=== PATIENT | male | born 1945 | race Caucasian/White ===

== ENCOUNTER 2017-10-22 08:00 | Day surgery (SDC) | payer MEDICARE, OTHER ==
[~2017-10-22 08:00] MED LIST: ALLO300 PO; ASCO500 PO; ASPI81EC PO; BUME2 PO; Bactrim Ds Tab1 EACH PO; CALC667 PO; CEPH500 PO; CLAR500; CLOP75; CLOP75 PO; CYAN500 PO; DIGO.125 PO; DIGO.25; ERYT333ERA PO; FURO40; GLIM2 PO; GLIM4 PO; LEVSOD125 PO; LEVSOD175; LEVSOD200; LEVSOD200 PO; LEVSOD25 PO; MAGNESIUM; MAGOXI400 PO; METF500 PO; METF500C PO; METO2.5 PO; OMEP20ER PO; POTA10T PO; POTCHL10ER; POTCHL10ER PO; TAMS.4ER PO; THYROXINE; WARF5; ZINC; [UNRECOGNIZED DRUG - OTHER]; [UNRECOGNIZED DRUG - REMARK]
== END 2017-10-22 10:51 | disposition home or self-care (01) ==
LOC: WOUND 08:00
PROC: 2W1RX6Z Compression of Left Lower Leg using Pressure Dressing (ICD-10-PCS; principal; 2017-10-22)
DX: Z48.00 Encounter for change or removal of nonsurgical wound dressing (principal); E11.622 Type 2 diabetes mellitus with other skin ulcer; L89.893 Pressure ulcer of other site, stage 3; I89.0 Lymphedema, not elsewhere classified; L89.152 Pressure ulcer of sacral region, stage 2

== ENCOUNTER 2017-10-26 12:38 | Day surgery (SDC) | payer MEDICARE, OTHER | END 2017-10-26 23:17 | disposition home or self-care (01) | LOC: WOUND 12:38 | PROC: 2W1RX6Z Compression of Left Lower Leg using Pressure Dressing (ICD-10-PCS; principal; 2017-10-26) | DX: Z48.00 Encounter for change or removal of nonsurgical wound dressing (principal); E11.622 Type 2 diabetes mellitus with other skin ulcer; L89.893 Pressure ulcer of other site, stage 3; I89.0 Lymphedema, not elsewhere classified; L89.152 Pressure ulcer of sacral region, stage 2 ==

== ENCOUNTER 2017-10-28 14:11 | Day surgery (SDC) | payer MEDICARE, OTHER | END 2017-10-28 23:12 | disposition home or self-care (01) | LOC: WOUND 14:11 | PROC: 2W1RX6Z Compression of Left Lower Leg using Pressure Dressing (ICD-10-PCS; principal; 2017-10-28) | DX: Z48.00 Encounter for change or removal of nonsurgical wound dressing (principal); E11.622 Type 2 diabetes mellitus with other skin ulcer; L89.893 Pressure ulcer of other site, stage 3; I89.0 Lymphedema, not elsewhere classified; L89.152 Pressure ulcer of sacral region, stage 2 ==

== ENCOUNTER 2017-11-04 12:30 | Day surgery (SDC) | payer MEDICARE, OTHER | END 2017-11-04 16:53 | disposition home or self-care (01) | LOC: WOUND 12:30 | DX: Z48.00 Encounter for change or removal of nonsurgical wound dressing (principal); E11.622 Type 2 diabetes mellitus with other skin ulcer; L89.893 Pressure ulcer of other site, stage 3; I89.0 Lymphedema, not elsewhere classified; L89.152 Pressure ulcer of sacral region, stage 2; E66.9 Obesity, unspecified; L97.929 Non-pressure chronic ulcer of unspecified part of left lower leg with unspecified severity; L97.919 Non-pressure chronic ulcer of unspecified part of right lower leg with unspecified severity | CPT/HCPCS: G0463 ==

== ENCOUNTER 2017-11-11 08:00 | Day surgery (SDC) | payer MEDICARE, OTHER | END 2017-11-11 11:00 | disposition home or self-care (01) | LOC: WOUND 08:00 | PROC: 2W1RX6Z Compression of Left Lower Leg using Pressure Dressing (ICD-10-PCS; principal; 2017-11-11) | DX: Z48.00 Encounter for change or removal of nonsurgical wound dressing (principal); E11.622 Type 2 diabetes mellitus with other skin ulcer; L89.893 Pressure ulcer of other site, stage 3; I89.0 Lymphedema, not elsewhere classified; L89.152 Pressure ulcer of sacral region, stage 2 | CPT/HCPCS: G0463 ==

== ENCOUNTER 2017-11-18 08:00 | Day surgery (SDC) | payer MEDICARE, OTHER | END 2017-11-18 11:41 | disposition home or self-care (01) | LOC: WOUND 08:00 | PROC: 2W1RX6Z Compression of Left Lower Leg using Pressure Dressing (ICD-10-PCS; principal; 2017-11-18) | DX: Z48.00 Encounter for change or removal of nonsurgical wound dressing (principal); E11.622 Type 2 diabetes mellitus with other skin ulcer; L89.893 Pressure ulcer of other site, stage 3; I89.0 Lymphedema, not elsewhere classified; L89.152 Pressure ulcer of sacral region, stage 2; L97.829 Non-pressure chronic ulcer of other part of left lower leg with unspecified severity; L97.819 Non-pressure chronic ulcer of other part of right lower leg with unspecified severity | CPT/HCPCS: G0463 ==

== ENCOUNTER 2017-11-22 09:18 | Day surgery (SDC) | payer MEDICARE, OTHER | END 2017-11-22 13:19 | disposition home or self-care (01) | LOC: WOUND 09:18 | PROC: 2W1RX6Z Compression of Left Lower Leg using Pressure Dressing (ICD-10-PCS; principal; 2017-11-22) | DX: Z48.00 Encounter for change or removal of nonsurgical wound dressing (principal); E11.622 Type 2 diabetes mellitus with other skin ulcer; L89.893 Pressure ulcer of other site, stage 3; I89.0 Lymphedema, not elsewhere classified; L89.152 Pressure ulcer of sacral region, stage 2; L97.829 Non-pressure chronic ulcer of other part of left lower leg with unspecified severity; L97.819 Non-pressure chronic ulcer of other part of right lower leg with unspecified severity ==

== ENCOUNTER 2017-11-26 00:40 | Day surgery (SDC) | payer MEDICARE, OTHER | END 2017-11-26 23:20 | disposition home or self-care (01) | LOC: WOUND 00:40 | PROC: 2W1RX6Z Compression of Left Lower Leg using Pressure Dressing (ICD-10-PCS; principal; 2017-11-26) | DX: Z48.00 Encounter for change or removal of nonsurgical wound dressing (principal); E11.622 Type 2 diabetes mellitus with other skin ulcer; L89.893 Pressure ulcer of other site, stage 3; I89.0 Lymphedema, not elsewhere classified; L89.152 Pressure ulcer of sacral region, stage 2; E66.01 Morbid (severe) obesity due to excess calories | CPT/HCPCS: G0463 ==

== ENCOUNTER 2017-12-02 08:00 | Day surgery (SDC) | payer MEDICARE, OTHER | END 2017-12-02 14:18 | disposition home or self-care (01) | LOC: WOUND 08:00 | PROC: 2W1RX6Z Compression of Left Lower Leg using Pressure Dressing (ICD-10-PCS; principal; 2017-12-02) | DX: Z48.00 Encounter for change or removal of nonsurgical wound dressing (principal); E11.622 Type 2 diabetes mellitus with other skin ulcer; L89.893 Pressure ulcer of other site, stage 3; L89.152 Pressure ulcer of sacral region, stage 2; I89.0 Lymphedema, not elsewhere classified; E66.01 Morbid (severe) obesity due to excess calories; L97.829 Non-pressure chronic ulcer of other part of left lower leg with unspecified severity; L97.819 Non-pressure chronic ulcer of other part of right lower leg with unspecified severity ==

== ENCOUNTER 2017-12-08 13:00 | Day surgery (SDC) | payer MEDICARE, OTHER | END 2017-12-08 13:40 | disposition home or self-care (01) | LOC: WOUND 13:00 | PROC: 2W1RX6Z Compression of Left Lower Leg using Pressure Dressing (ICD-10-PCS; principal; 2017-12-08) | DX: Z48.00 Encounter for change or removal of nonsurgical wound dressing (principal); E11.622 Type 2 diabetes mellitus with other skin ulcer; L89.893 Pressure ulcer of other site, stage 3; I89.0 Lymphedema, not elsewhere classified; L89.152 Pressure ulcer of sacral region, stage 2 ==

== ENCOUNTER 2017-12-16 00:21 | Day surgery (SDC) | payer MEDICARE, OTHER | END 2017-12-16 23:13 | disposition home or self-care (01) | LOC: WOUND 00:21 | PROC: 2W1RX6Z Compression of Left Lower Leg using Pressure Dressing (ICD-10-PCS; principal; 2017-12-16) | DX: Z48.00 Encounter for change or removal of nonsurgical wound dressing (principal); E11.622 Type 2 diabetes mellitus with other skin ulcer; L89.893 Pressure ulcer of other site, stage 3; I89.0 Lymphedema, not elsewhere classified; E66.9 Obesity, unspecified ==

== ENCOUNTER 2017-12-23 00:56 | Day surgery (SDC) | payer MEDICARE, OTHER | END 2017-12-23 22:54 | disposition home or self-care (01) | LOC: WOUND 00:56 | PROC: 2W1RX6Z Compression of Left Lower Leg using Pressure Dressing (ICD-10-PCS; principal; 2017-12-23) | DX: E11.622 Type 2 diabetes mellitus with other skin ulcer (principal); L89.893 Pressure ulcer of other site, stage 3; I89.0 Lymphedema, not elsewhere classified; L89.152 Pressure ulcer of sacral region, stage 2; E66.01 Morbid (severe) obesity due to excess calories | CPT/HCPCS: G0463 ==

== ENCOUNTER 2017-12-30 09:00 | Day surgery (SDC) | payer MEDICARE, OTHER | END 2017-12-30 22:37 | disposition home or self-care (01) | LOC: WOUND 09:00 | PROC: 2W1RX6Z Compression of Left Lower Leg using Pressure Dressing (ICD-10-PCS; principal; 2017-12-30) | DX: E11.622 Type 2 diabetes mellitus with other skin ulcer (principal); L89.893 Pressure ulcer of other site, stage 3; I89.0 Lymphedema, not elsewhere classified; L89.152 Pressure ulcer of sacral region, stage 2; E66.01 Morbid (severe) obesity due to excess calories; L97.929 Non-pressure chronic ulcer of unspecified part of left lower leg with unspecified severity; L97.919 Non-pressure chronic ulcer of unspecified part of right lower leg with unspecified severity | CPT/HCPCS: G0463 ==

== ENCOUNTER 2018-01-05 13:00 | Day surgery (SDC) | payer MEDICARE, OTHER | END 2018-01-05 16:50 | disposition home or self-care (01) | LOC: WOUND 13:00 | PROC: 2W1RX6Z Compression of Left Lower Leg using Pressure Dressing (ICD-10-PCS; principal; 2018-01-05) | DX: E11.622 Type 2 diabetes mellitus with other skin ulcer (principal); L89.152 Pressure ulcer of sacral region, stage 2; L89.893 Pressure ulcer of other site, stage 3; I89.0 Lymphedema, not elsewhere classified; E66.01 Morbid (severe) obesity due to excess calories; I87.2 Venous insufficiency (chronic) (peripheral); L97.829 Non-pressure chronic ulcer of other part of left lower leg with unspecified severity; L97.819 Non-pressure chronic ulcer of other part of right lower leg with unspecified severity ==

== ENCOUNTER 2018-01-13 00:53 | Day surgery (SDC) | payer MEDICARE, OTHER | END 2018-01-13 11:28 | disposition home or self-care (01) | LOC: WOUND 00:53 | PROC: 2W1RX6Z Compression of Left Lower Leg using Pressure Dressing (ICD-10-PCS; principal; 2018-01-13) | PROC: 0HBLXZZ Excision of Left Lower Leg Skin, External Approach (ICD-10-PCS; principal; 2018-01-13) | DX: Z48.00 Encounter for change or removal of nonsurgical wound dressing (principal); E11.622 Type 2 diabetes mellitus with other skin ulcer; L89.893 Pressure ulcer of other site, stage 3; L89.152 Pressure ulcer of sacral region, stage 2; I89.0 Lymphedema, not elsewhere classified; E66.01 Morbid (severe) obesity due to excess calories; Z68.42 Body mass index [BMI] 45.0-49.9, adult | CPT/HCPCS: G0463 ==

== ENCOUNTER 2018-01-20 09:00 | Day surgery (SDC) | payer MEDICARE, OTHER | END 2018-01-20 22:53 | disposition home or self-care (01) | LOC: WOUND 09:00 | PROC: 0HBLXZZ Excision of Left Lower Leg Skin, External Approach (ICD-10-PCS; principal; 2018-01-20) | PROC: 2W1MX6Z Compression of Left Lower Extremity using Pressure Dressing (ICD-10-PCS; principal; 2018-01-20) | DX: E11.622 Type 2 diabetes mellitus with other skin ulcer (principal); L89.893 Pressure ulcer of other site, stage 3; L89.152 Pressure ulcer of sacral region, stage 2; L97.829 Non-pressure chronic ulcer of other part of left lower leg with unspecified severity; E66.01 Morbid (severe) obesity due to excess calories | CPT/HCPCS: G0463 ==

== ENCOUNTER 2018-01-27 09:03 | Day surgery (SDC) | payer MEDICARE, OTHER | END 2018-01-27 22:49 | disposition home or self-care (01) | LOC: WOUND 09:03 | DX: E11.622 Type 2 diabetes mellitus with other skin ulcer (principal); L97.222 Non-pressure chronic ulcer of left calf with fat layer exposed; L89.893 Pressure ulcer of other site, stage 3; I89.0 Lymphedema, not elsewhere classified; L89.152 Pressure ulcer of sacral region, stage 2 | CPT/HCPCS: 36415; 80053; 80061; 83036; 84443; G0463 ==

== ENCOUNTER 2018-02-03 09:12 | Day surgery (SDC) | payer MEDICARE, OTHER | END 2018-02-03 22:42 | disposition home or self-care (01) | LOC: WOUND 09:12 | PROC: 0HBLXZZ Excision of Left Lower Leg Skin, External Approach (ICD-10-PCS; principal; 2018-02-03) | PROC: 2W1RX6Z Compression of Left Lower Leg using Pressure Dressing (ICD-10-PCS; principal; 2018-02-03) | DX: E11.622 Type 2 diabetes mellitus with other skin ulcer (principal); L97.822 Non-pressure chronic ulcer of other part of left lower leg with fat layer exposed; L89.893 Pressure ulcer of other site, stage 3; I89.0 Lymphedema, not elsewhere classified; L89.152 Pressure ulcer of sacral region, stage 2; E66.01 Morbid (severe) obesity due to excess calories | CPT/HCPCS: G0463 ==

== ENCOUNTER 2018-02-10 09:00 | Day surgery (SDC) | payer MEDICARE, OTHER | END 2018-02-10 10:20 | disposition home or self-care (01) | LOC: WOUND 09:00 | PROC: 0HBLXZZ Excision of Left Lower Leg Skin, External Approach (ICD-10-PCS; principal; 2018-02-10) | DX: E11.622 Type 2 diabetes mellitus with other skin ulcer (principal); I89.0 Lymphedema, not elsewhere classified; L89.152 Pressure ulcer of sacral region, stage 2; L89.893 Pressure ulcer of other site, stage 3; E66.01 Morbid (severe) obesity due to excess calories; L97.829 Non-pressure chronic ulcer of other part of left lower leg with unspecified severity | CPT/HCPCS: G0463 ==

== ENCOUNTER 2018-02-17 00:14 | Day surgery (SDC) | payer MEDICARE, OTHER | END 2018-02-17 15:44 | disposition home or self-care (01) | LOC: WOUND 00:14 | PROC: 2W1RX6Z Compression of Left Lower Leg using Pressure Dressing (ICD-10-PCS; principal; 2018-02-17) | DX: E11.622 Type 2 diabetes mellitus with other skin ulcer (principal); L97.222 Non-pressure chronic ulcer of left calf with fat layer exposed; I89.0 Lymphedema, not elsewhere classified; L89.152 Pressure ulcer of sacral region, stage 2; E66.01 Morbid (severe) obesity due to excess calories; L89.892 Pressure ulcer of other site, stage 2 | CPT/HCPCS: G0463 ==

== ENCOUNTER 2018-02-24 00:04 | Day surgery (SDC) | payer MEDICARE, OTHER | END 2018-02-24 11:38 | disposition home or self-care (01) | LOC: WOUND 00:04 | PROC: 0HBLXZZ Excision of Left Lower Leg Skin, External Approach (ICD-10-PCS; principal; 2018-02-24) | PROC: 2W1RX6Z Compression of Left Lower Leg using Pressure Dressing (ICD-10-PCS; principal; 2018-02-24) | DX: E11.622 Type 2 diabetes mellitus with other skin ulcer (principal); L97.222 Non-pressure chronic ulcer of left calf with fat layer exposed; L89.893 Pressure ulcer of other site, stage 3; I89.0 Lymphedema, not elsewhere classified; L89.152 Pressure ulcer of sacral region, stage 2 | CPT/HCPCS: G0463 ==

== ENCOUNTER 2018-03-03 09:00 | Day surgery (SDC) | payer MEDICARE, OTHER | END 2018-03-03 11:24 | disposition home or self-care (01) | LOC: WOUND 09:00 | PROC: 0HBLXZZ Excision of Left Lower Leg Skin, External Approach (ICD-10-PCS; principal; 2018-03-03) | PROC: 2W1MX6Z Compression of Left Lower Extremity using Pressure Dressing (ICD-10-PCS; principal; 2018-03-03) | DX: E11.622 Type 2 diabetes mellitus with other skin ulcer (principal); L97.229 Non-pressure chronic ulcer of left calf with unspecified severity; L89.893 Pressure ulcer of other site, stage 3; L89.152 Pressure ulcer of sacral region, stage 2; I89.0 Lymphedema, not elsewhere classified | CPT/HCPCS: G0463 ==

== ENCOUNTER 2018-03-04 09:22 | Day surgery (SDC) | payer MEDICARE, OTHER | END 2018-03-04 22:49 | disposition home or self-care (01) | LOC: WOUND 09:22 | PROC: 2W1RX6Z Compression of Left Lower Leg using Pressure Dressing (ICD-10-PCS; principal; 2018-03-04) | DX: E11.622 Type 2 diabetes mellitus with other skin ulcer (principal); L89.893 Pressure ulcer of other site, stage 3; I89.0 Lymphedema, not elsewhere classified; L89.152 Pressure ulcer of sacral region, stage 2; L97.829 Non-pressure chronic ulcer of other part of left lower leg with unspecified severity ==

== ENCOUNTER 2018-03-10 09:00 | Day surgery (SDC) | payer MEDICARE, OTHER | END 2018-03-10 13:58 | disposition home or self-care (01) | LOC: WOUND 09:00 | PROC: 2W1RX6Z Compression of Left Lower Leg using Pressure Dressing (ICD-10-PCS; principal; 2018-03-10) | DX: E11.622 Type 2 diabetes mellitus with other skin ulcer (principal); L97.229 Non-pressure chronic ulcer of left calf with unspecified severity; L97.829 Non-pressure chronic ulcer of other part of left lower leg with unspecified severity; L89.152 Pressure ulcer of sacral region, stage 2; I89.0 Lymphedema, not elsewhere classified; L89.893 Pressure ulcer of other site, stage 3 | CPT/HCPCS: G0463 ==

== ENCOUNTER 2018-03-17 09:02 | Day surgery (SDC) | payer MEDICARE, OTHER | END 2018-03-17 10:36 | disposition home or self-care (01) | LOC: WOUND 09:02 | PROC: 2W1RX6Z Compression of Left Lower Leg using Pressure Dressing (ICD-10-PCS; principal; 2018-03-17) | DX: E11.622 Type 2 diabetes mellitus with other skin ulcer (principal); L97.222 Non-pressure chronic ulcer of left calf with fat layer exposed; L97.822 Non-pressure chronic ulcer of other part of left lower leg with fat layer exposed; L89.152 Pressure ulcer of sacral region, stage 2 | CPT/HCPCS: G0463 ==

== ENCOUNTER 2018-03-22 15:16 | Day surgery (SDC) | END 2018-03-22 16:54 | disposition home or self-care (01) ==

== ENCOUNTER 2018-03-24 08:53 | Day surgery (SDC) | payer MEDICARE, OTHER | END 2018-03-24 23:00 | disposition home or self-care (01) | LOC: WOUND 08:53 | PROC: 2W1RX6Z Compression of Left Lower Leg using Pressure Dressing (ICD-10-PCS; principal; 2018-03-24) | PROC: 2W1QX6Z Compression of Right Lower Leg using Pressure Dressing (ICD-10-PCS; principal; 2018-03-24) | DX: E11.622 Type 2 diabetes mellitus with other skin ulcer (principal); L97.222 Non-pressure chronic ulcer of left calf with fat layer exposed; L97.819 Non-pressure chronic ulcer of other part of right lower leg with unspecified severity; L89.893 Pressure ulcer of other site, stage 3; I89.0 Lymphedema, not elsewhere classified; L89.152 Pressure ulcer of sacral region, stage 2 | CPT/HCPCS: G0463 ==

== ENCOUNTER 2018-03-30 13:15 | Day surgery (SDC) | payer MEDICARE, OTHER | END 2018-03-30 22:41 | disposition home or self-care (01) | LOC: WOUND 13:15 | PROC: 2W1RX6Z Compression of Left Lower Leg using Pressure Dressing (ICD-10-PCS; principal; 2018-03-30) | PROC: 2W1QX6Z Compression of Right Lower Leg using Pressure Dressing (ICD-10-PCS; principal; 2018-03-30) | DX: E11.622 Type 2 diabetes mellitus with other skin ulcer (principal); L97.822 Non-pressure chronic ulcer of other part of left lower leg with fat layer exposed; L89.893 Pressure ulcer of other site, stage 3; I89.0 Lymphedema, not elsewhere classified; L89.152 Pressure ulcer of sacral region, stage 2 | CPT/HCPCS: G0463 ==

== ENCOUNTER 2018-04-07 09:00 | Day surgery (SDC) | payer MEDICARE, OTHER | END 2018-04-07 10:37 | disposition home or self-care (01) | LOC: WOUND 09:00 | DX: Z48.00 Encounter for change or removal of nonsurgical wound dressing (principal); L89.892 Pressure ulcer of other site, stage 2; E11.622 Type 2 diabetes mellitus with other skin ulcer; L97.222 Non-pressure chronic ulcer of left calf with fat layer exposed; E66.01 Morbid (severe) obesity due to excess calories; I87.8 Other specified disorders of veins | CPT/HCPCS: G0463 ==

== ENCOUNTER 2018-04-15 15:00 | Day surgery (SDC) | payer MEDICARE, OTHER | END 2018-04-15 16:35 | disposition home or self-care (01) | LOC: WOUND 15:00 | PROC: 0HBLXZZ Excision of Left Lower Leg Skin, External Approach (ICD-10-PCS; principal; 2018-04-15) | PROC: 2W1RX6Z Compression of Left Lower Leg using Pressure Dressing (ICD-10-PCS; principal; 2018-04-15) | DX: E11.622 Type 2 diabetes mellitus with other skin ulcer (principal); L97.222 Non-pressure chronic ulcer of left calf with fat layer exposed; L97.822 Non-pressure chronic ulcer of other part of left lower leg with fat layer exposed ==

== ENCOUNTER 2018-04-22 09:18 | Day surgery (SDC) | payer MEDICARE, OTHER | END 2018-04-22 11:09 | disposition home or self-care (01) | LOC: WOUND 09:18 | PROC: 2W1RX6Z Compression of Left Lower Leg using Pressure Dressing (ICD-10-PCS; principal; 2018-04-22) | PROC: 0HBLXZZ Excision of Left Lower Leg Skin, External Approach (ICD-10-PCS; principal; 2018-04-22) | DX: E11.622 Type 2 diabetes mellitus with other skin ulcer (principal); L97.222 Non-pressure chronic ulcer of left calf with fat layer exposed; L97.822 Non-pressure chronic ulcer of other part of left lower leg with fat layer exposed ==

== ENCOUNTER 2018-05-06 00:56 | Day surgery (SDC) | payer MEDICARE, OTHER | END 2018-05-06 22:42 | disposition home or self-care (01) | LOC: WOUND 00:56 | DX: E11.622 Type 2 diabetes mellitus with other skin ulcer (principal); L89.893 Pressure ulcer of other site, stage 3; L89.152 Pressure ulcer of sacral region, stage 2; I89.0 Lymphedema, not elsewhere classified; E66.01 Morbid (severe) obesity due to excess calories; I87.2 Venous insufficiency (chronic) (peripheral); R60.0 Localized edema; Z68.42 Body mass index [BMI] 45.0-49.9, adult ==

== ENCOUNTER 2018-05-11 11:30 | Day surgery (SDC) | payer MEDICARE, OTHER | END 2018-05-11 12:02 | disposition home or self-care (01) | LOC: WOUND 11:30 | PROC: 2W1RX6Z Compression of Left Lower Leg using Pressure Dressing (ICD-10-PCS; principal; 2018-05-11) | DX: E11.622 Type 2 diabetes mellitus with other skin ulcer (principal); L97.829 Non-pressure chronic ulcer of other part of left lower leg with unspecified severity; L89.893 Pressure ulcer of other site, stage 3; I89.0 Lymphedema, not elsewhere classified; E66.01 Morbid (severe) obesity due to excess calories ==

== ENCOUNTER 2018-06-03 00:13 | Day surgery (SDC) | payer MEDICARE, OTHER ==
[2018-06-03] MEDS ORDERED: BUME1 PO (08:43)
[2018-06-03] MEDS ORDERED: POTCHL10ER PO (08:44)
[2018-06-03 10:48] LABS: Albumin/Globulin Ratio 0.7 (0.8-1.8); Bilirubin, Direct 0.2 mg/dL (0.0-0.3); Bilirubin, Indirect 0.4 mg/dL (0.1-0.7); Bilirubin, Total 0.6 mg/dL (0.1-1.0); Globulin, Blood 4.2 g/dL (2.2-4.0); Total Protein, Blood 7.2 g/dL (6.4-8.2)
[2018-06-03 10:52] LABS: Thyroid Stimulating Hormone 4.81 uIU/mL (0.360-4.800)
== END 2018-06-03 09:00 | disposition home or self-care (01) ==
LOC: LAB 00:13 → ATC 00:13
DX: E11.622 Type 2 diabetes mellitus with other skin ulcer (principal); L97.222 Non-pressure chronic ulcer of left calf with fat layer exposed; L89.893 Pressure ulcer of other site, stage 3; I89.0 Lymphedema, not elsewhere classified; L89.152 Pressure ulcer of sacral region, stage 2; E78.5 Hyperlipidemia, unspecified; E03.9 Hypothyroidism, unspecified; E11.9 Type 2 diabetes mellitus without complications; E66.01 Morbid (severe) obesity due to excess calories
CPT/HCPCS: 36415; 80076; 83036; 84443; 99211

== ENCOUNTER 2018-06-08 00:51 | Day surgery (SDC) | payer MEDICARE, OTHER ==
[~2018-06-08 00:51] MED LIST changes: +BUME1 PO
== END 2018-06-08 15:00 | disposition home or self-care (01) ==
LOC: ATC 00:51
DX: E11.622 Type 2 diabetes mellitus with other skin ulcer (principal); L97.222 Non-pressure chronic ulcer of left calf with fat layer exposed; L97.829 Non-pressure chronic ulcer of other part of left lower leg with unspecified severity; L89.893 Pressure ulcer of other site, stage 3; I89.0 Lymphedema, not elsewhere classified; L89.152 Pressure ulcer of sacral region, stage 2; E11.9 Type 2 diabetes mellitus without complications; E78.5 Hyperlipidemia, unspecified
CPT/HCPCS: 99214

== ENCOUNTER 2018-06-13 00:21 | Day surgery (SDC) | payer MEDICARE, OTHER ==
[2018-06-13] MEDS ORDERED: LEVSOD150 PO (09:22)
== END 2018-06-13 09:23 | disposition home or self-care (01) ==
LOC: ATC 00:21
DX: E11.622 Type 2 diabetes mellitus with other skin ulcer (principal); L97.229 Non-pressure chronic ulcer of left calf with unspecified severity; L89.893 Pressure ulcer of other site, stage 3; I89.0 Lymphedema, not elsewhere classified; L89.152 Pressure ulcer of sacral region, stage 2; E03.9 Hypothyroidism, unspecified; E78.5 Hyperlipidemia, unspecified
CPT/HCPCS: 99213

== ENCOUNTER 2018-06-15 00:15 | Day surgery (SDC) | payer MEDICARE, OTHER ==
[~2018-06-15 00:15] MED LIST changes: +LEVSOD150 PO
== END 2018-06-15 22:36 | disposition home or self-care (01) ==
LOC: ATC 00:15
DX: E11.622 Type 2 diabetes mellitus with other skin ulcer (principal); L97.222 Non-pressure chronic ulcer of left calf with fat layer exposed; L89.893 Pressure ulcer of other site, stage 3; I89.0 Lymphedema, not elsewhere classified; L89.152 Pressure ulcer of sacral region, stage 2; E03.9 Hypothyroidism, unspecified; E78.5 Hyperlipidemia, unspecified
CPT/HCPCS: 99214

== ENCOUNTER 2018-06-20 01:41 | Day surgery (SDC) | payer MEDICARE, OTHER | END 2018-06-20 08:30 | disposition home or self-care (01) | LOC: ATC 01:41 | DX: Z48.00 Encounter for change or removal of nonsurgical wound dressing (principal); E11.622 Type 2 diabetes mellitus with other skin ulcer; L89.893 Pressure ulcer of other site, stage 3; L89.152 Pressure ulcer of sacral region, stage 2; I89.0 Lymphedema, not elsewhere classified | CPT/HCPCS: 99214 ==

== ENCOUNTER 2018-06-23 00:09 | Day surgery (SDC) | payer MEDICARE, OTHER | END 2018-06-23 09:21 | disposition home or self-care (01) | LOC: ATC 00:09 | DX: E11.622 Type 2 diabetes mellitus with other skin ulcer (principal); L89.893 Pressure ulcer of other site, stage 3; I89.0 Lymphedema, not elsewhere classified; L89.152 Pressure ulcer of sacral region, stage 2 | CPT/HCPCS: 99213 ==

== ENCOUNTER 2018-07-01 11:40 | Day surgery (SDC) | payer MEDICARE, OTHER | END 2018-07-01 22:58 | disposition home or self-care (01) | LOC: WOUND 11:40 | PROC: 2W1MX6Z Compression of Left Lower Extremity using Pressure Dressing (ICD-10-PCS; principal; 2018-07-01) | DX: E11.622 Type 2 diabetes mellitus with other skin ulcer (principal); L89.893 Pressure ulcer of other site, stage 3; E66.01 Morbid (severe) obesity due to excess calories; I89.0 Lymphedema, not elsewhere classified | CPT/HCPCS: G0463 ==

== ENCOUNTER 2018-07-05 07:44 | Day surgery (SDC) | payer MEDICARE, OTHER | END 2018-07-05 22:38 | disposition home or self-care (01) | LOC: WOUND 07:44 | DX: E11.622 Type 2 diabetes mellitus with other skin ulcer (principal); L89.893 Pressure ulcer of other site, stage 3; I89.0 Lymphedema, not elsewhere classified; E66.01 Morbid (severe) obesity due to excess calories | CPT/HCPCS: Q4131 ==

== ENCOUNTER 2018-07-08 12:05 | Day surgery (SDC) | payer MEDICARE, OTHER | END 2018-07-08 13:00 | disposition home or self-care (01) | LOC: WOUND 12:05 | DX: L89.893 Pressure ulcer of other site, stage 3 (principal); E11.622 Type 2 diabetes mellitus with other skin ulcer; I89.0 Lymphedema, not elsewhere classified; E66.01 Morbid (severe) obesity due to excess calories ==

== ENCOUNTER 2018-07-12 00:04 | Day surgery (SDC) | payer MEDICARE, OTHER | END 2018-07-12 22:45 | disposition home or self-care (01) | LOC: WOUND 00:04 | DX: L89.893 Pressure ulcer of other site, stage 3 (principal); E11.622 Type 2 diabetes mellitus with other skin ulcer; I89.0 Lymphedema, not elsewhere classified; E66.01 Morbid (severe) obesity due to excess calories; I83.029 Varicose veins of left lower extremity with ulcer of unspecified site ==

== ENCOUNTER 2018-07-14 12:22 | Day surgery (SDC) | payer MEDICARE, OTHER | END 2018-07-14 13:50 | disposition home or self-care (01) | LOC: WOUND 12:22 | DX: E11.622 Type 2 diabetes mellitus with other skin ulcer (principal); L89.893 Pressure ulcer of other site, stage 3; I89.0 Lymphedema, not elsewhere classified; E66.01 Morbid (severe) obesity due to excess calories | CPT/HCPCS: Q4131 ==

== ENCOUNTER 2018-07-19 12:00 | Day surgery (SDC) | payer MEDICARE, OTHER | END 2018-07-19 14:00 | disposition home or self-care (01) | LOC: WOUND 12:00 | DX: L89.93 Pressure ulcer of unspecified site, stage 3 (principal); E11.628 Type 2 diabetes mellitus with other skin complications; I89.0 Lymphedema, not elsewhere classified; E66.01 Morbid (severe) obesity due to excess calories ==

== ENCOUNTER 2018-07-21 00:06 | Day surgery (SDC) | payer MEDICARE, OTHER | END 2018-07-21 22:45 | disposition home or self-care (01) | LOC: WOUND 00:06 | DX: L89.893 Pressure ulcer of other site, stage 3 (principal); E11.628 Type 2 diabetes mellitus with other skin complications; I89.0 Lymphedema, not elsewhere classified; E66.01 Morbid (severe) obesity due to excess calories; Z68.43 Body mass index [BMI] 50.0-59.9, adult | CPT/HCPCS: Q4131 ==

== ENCOUNTER 2018-07-26 09:00 | Day surgery (SDC) | payer MEDICARE, OTHER | END 2018-07-26 22:39 | disposition home or self-care (01) | LOC: WOUND 09:00 | DX: L89.893 Pressure ulcer of other site, stage 3 (principal); E11.622 Type 2 diabetes mellitus with other skin ulcer; I89.0 Lymphedema, not elsewhere classified; E66.01 Morbid (severe) obesity due to excess calories ==

== ENCOUNTER 2018-07-29 00:05 | Day surgery (SDC) | payer MEDICARE, OTHER | END 2018-07-29 22:38 | disposition home or self-care (01) | LOC: WOUND 00:05 | DX: L89.893 Pressure ulcer of other site, stage 3 (principal); E11.622 Type 2 diabetes mellitus with other skin ulcer; I89.0 Lymphedema, not elsewhere classified; E66.01 Morbid (severe) obesity due to excess calories | CPT/HCPCS: Q4131 ==

== ENCOUNTER 2018-08-18 13:07 | Day surgery (SDC) | payer MEDICARE, OTHER | END 2018-08-18 13:17 | disposition home or self-care (01) | LOC: WOUND 13:07 | DX: E11.622 Type 2 diabetes mellitus with other skin ulcer (principal); L89.893 Pressure ulcer of other site, stage 3; I89.0 Lymphedema, not elsewhere classified; E11.51 Type 2 diabetes mellitus with diabetic peripheral angiopathy without gangrene; E66.01 Morbid (severe) obesity due to excess calories ==

== ENCOUNTER 2018-08-23 00:08 | Day surgery (SDC) | payer MEDICARE, OTHER | END 2018-08-23 23:01 | disposition home or self-care (01) | LOC: WOUND 00:08 | DX: E11.622 Type 2 diabetes mellitus with other skin ulcer (principal); L89.893 Pressure ulcer of other site, stage 3; I89.0 Lymphedema, not elsewhere classified; E11.51 Type 2 diabetes mellitus with diabetic peripheral angiopathy without gangrene | CPT/HCPCS: Q4131 ==

== ENCOUNTER 2018-08-25 00:01 | Day surgery (SDC) | payer MEDICARE, OTHER | END 2018-08-25 22:44 | disposition home or self-care (01) | LOC: WOUND 00:01 | DX: E11.622 Type 2 diabetes mellitus with other skin ulcer (principal); L89.893 Pressure ulcer of other site, stage 3; I89.0 Lymphedema, not elsewhere classified ==

== ENCOUNTER 2018-10-09 18:50 | Emergency (ER) | payer MEDICARE, OTHER ==
[~2018-10-09] VITALS: Ht 175.3 cm; Wt 158.8 kg
[2018-10-09] MEDS ORDERED: LEVO750 PO (19:06)
[2018-10-09] MEDS ORDERED: Lisinopril2.5 MG PO (19:07)
[2018-10-09] MEDS ORDERED: METO25 PO (19:07)
[2018-10-09] MEDS ORDERED: XARELTO20 MG PO (19:08)
[2018-10-09 20:23] LABS: BASOPHILS ABSOLUTE AUTO 0.08 K/mm3 (0.00-0.23); BASOPHILS PERCENT AUTO 1 % (0-2); EOSINOPHILS ABSOLUTE AUTO 0.29 K/mm3 (0.00-0.68); EOSINOPHILS PERCENT AUTO 3 % (0-6); Hematocrit 45.7 % (37.0-53.0); Hemoglobin 13.7 g/dL (13.5-17.5); IMMATURE GRAN ABSOLUTE AUTO 0.04 K/mm3 (0.00-0.10); IMMATURE GRAN PERCENT AUTO 0 % (0-1); LYMPHOCYTES ABSOLUTE AUTO 3.34 K/mm3 (0.84-5.20); LYMPHOCYTES PERCENT AUTO 31 % (21-46); MONOCYTES ABSOLUTE AUTO 1.66 K/mm3 (0.16-1.47); MONOCYTES PERCENT AUTO 15 % (4-13); Mean Corpuscular Volume 97 fL (80-100); Mean Platelet Volume 10.9 fL (9.1-12.4); NEUTROPHILS ABSOLUTE AUTO 5.36 K/mm3 (1.96-9.15); NEUTROPHILS PERCENT AUTO 50 % (41-73); Platelet Count 246 K/mm3 (150-400); RDW Standard Deviation 46.8 fL (35.1-46.3); Red Blood Cell Count 4.72 M/mm3 (4.30-5.90); White Blood Cell Count 10.77 K/mm3 (4.00-11.30)
== END 2018-10-09 21:20 | disposition home or self-care (01) ==
LOC: ER 18:50
PROVIDERS: Emergency Medicine
DX: S81.802A Unspecified open wound, left lower leg, initial encounter (principal); I50.9 Heart failure, unspecified; I48.91 Unspecified atrial fibrillation; E03.9 Hypothyroidism, unspecified; K21.9 Gastro-esophageal reflux disease without esophagitis; Z79.899 Other long term (current) drug therapy; Z79.84 Long term (current) use of oral hypoglycemic drugs; Z87.891 Personal history of nicotine dependence; X58.XXXA Exposure to other specified factors, initial encounter
CPT/HCPCS: 36415; 85025; 99284

== ENCOUNTER 2018-10-10 11:22 | Day surgery (SDC) | payer MEDICARE, OTHER ==
[~2018-10-10 11:22] MED LIST changes: +LEVO750 PO; +Lisinopril2.5 MG PO; +METO25 PO; +XARELTO20 MG PO
== END 2018-10-10 22:39 | disposition home or self-care (01) ==
LOC: WOUND 11:22
DX: L89.893 Pressure ulcer of other site, stage 3 (principal); I87.2 Venous insufficiency (chronic) (peripheral); E11.622 Type 2 diabetes mellitus with other skin ulcer; I89.0 Lymphedema, not elsewhere classified; E66.01 Morbid (severe) obesity due to excess calories
CPT/HCPCS: G0463

== ENCOUNTER 2018-10-12 00:16 | Day surgery (SDC) | payer MEDICARE, OTHER | END 2018-10-12 22:49 | disposition home or self-care (01) | LOC: WOUND 00:16 | DX: L89.893 Pressure ulcer of other site, stage 3 (principal); L97.821 Non-pressure chronic ulcer of other part of left lower leg limited to breakdown of skin; I89.0 Lymphedema, not elsewhere classified; I87.2 Venous insufficiency (chronic) (peripheral); E11.622 Type 2 diabetes mellitus with other skin ulcer | CPT/HCPCS: G0463 ==

== ENCOUNTER 2018-10-26 13:55 | Day surgery (SDC) | payer MEDICARE, OTHER ==
[2018-12-13] MEDS ORDERED: GLIM2 PO (13:34)
[2018-12-13] MEDS ORDERED: LEVO-T150 MCG PO (13:34)
[2018-12-13] MEDS ORDERED: Lisinopril2.5 MG PO (13:35)
[2018-12-13] MEDS ORDERED: ATOR10 PO (13:35)
[2018-12-13] MEDS ORDERED: SYNTHROID175 MCG PO (13:36)
== END 2018-10-26 22:42 | disposition home or self-care (01) ==
LOC: WOUND 13:55
DX: L89.893 Pressure ulcer of other site, stage 3 (principal); L97.822 Non-pressure chronic ulcer of other part of left lower leg with fat layer exposed; I87.2 Venous insufficiency (chronic) (peripheral); I89.0 Lymphedema, not elsewhere classified; E11.622 Type 2 diabetes mellitus with other skin ulcer

== ENCOUNTER 2018-11-02 13:35 | Day surgery (SDC) | payer MEDICARE, OTHER ==
[2018-12-13] MEDS ORDERED: LEVO-T150 MCG PO (13:34)
[2018-12-13] MEDS ORDERED: GLIM2 PO (13:34)
[2018-12-13] MEDS ORDERED: ATOR10 PO (13:35)
[2018-12-13] MEDS ORDERED: Lisinopril2.5 MG PO (13:35)
[2018-12-13] MEDS ORDERED: SYNTHROID175 MCG PO (13:36)
== END 2018-11-02 22:38 | disposition home or self-care (01) ==
LOC: WOUND 13:35
DX: L89.893 Pressure ulcer of other site, stage 3 (principal); L97.822 Non-pressure chronic ulcer of other part of left lower leg with fat layer exposed; I87.2 Venous insufficiency (chronic) (peripheral); E11.622 Type 2 diabetes mellitus with other skin ulcer; I89.0 Lymphedema, not elsewhere classified; E66.01 Morbid (severe) obesity due to excess calories

== ENCOUNTER 2018-11-09 00:27 | Day surgery (SDC) | payer MEDICARE, OTHER ==
[2018-12-13] MEDS ORDERED: LEVO-T150 MCG PO (13:34)
[2018-12-13] MEDS ORDERED: GLIM2 PO (13:34)
[2018-12-13] MEDS ORDERED: Lisinopril2.5 MG PO (13:35)
[2018-12-13] MEDS ORDERED: ATOR10 PO (13:35)
[2018-12-13] MEDS ORDERED: SYNTHROID175 MCG PO (13:36)
== END 2018-11-09 22:37 | disposition home or self-care (01) ==
LOC: WOUND 00:27
DX: L89.893 Pressure ulcer of other site, stage 3 (principal); L97.822 Non-pressure chronic ulcer of other part of left lower leg with fat layer exposed; I87.2 Venous insufficiency (chronic) (peripheral); E11.622 Type 2 diabetes mellitus with other skin ulcer; I89.0 Lymphedema, not elsewhere classified; E66.01 Morbid (severe) obesity due to excess calories

== ENCOUNTER 2018-11-23 13:45 | Day surgery (SDC) | payer MEDICARE, OTHER ==
[2018-12-13] MEDS ORDERED: GLIM2 PO (13:34)
[2018-12-13] MEDS ORDERED: LEVO-T150 MCG PO (13:34)
[2018-12-13] MEDS ORDERED: ATOR10 PO (13:35)
[2018-12-13] MEDS ORDERED: Lisinopril2.5 MG PO (13:35)
[2018-12-13] MEDS ORDERED: SYNTHROID175 MCG PO (13:36)
== END 2018-11-23 22:46 | disposition home or self-care (01) ==
LOC: WOUND 13:45
DX: L89.893 Pressure ulcer of other site, stage 3 (principal); L97.823 Non-pressure chronic ulcer of other part of left lower leg with necrosis of muscle; I89.0 Lymphedema, not elsewhere classified; I87.2 Venous insufficiency (chronic) (peripheral); E11.622 Type 2 diabetes mellitus with other skin ulcer; E66.01 Morbid (severe) obesity due to excess calories

== ENCOUNTER 2018-11-30 13:00 | Day surgery (SDC) | payer MEDICARE, OTHER ==
[2018-12-13] MEDS ORDERED: LEVO-T150 MCG PO (13:34)
[2018-12-13] MEDS ORDERED: GLIM2 PO (13:34)
[2018-12-13] MEDS ORDERED: ATOR10 PO (13:35)
[2018-12-13] MEDS ORDERED: Lisinopril2.5 MG PO (13:35)
[2018-12-13] MEDS ORDERED: SYNTHROID175 MCG PO (13:36)
== END 2018-11-30 22:56 | disposition home or self-care (01) ==
LOC: WOUND 13:00
DX: E11.622 Type 2 diabetes mellitus with other skin ulcer (principal); L89.893 Pressure ulcer of other site, stage 3; L97.823 Non-pressure chronic ulcer of other part of left lower leg with necrosis of muscle; L97.821 Non-pressure chronic ulcer of other part of left lower leg limited to breakdown of skin; I89.0 Lymphedema, not elsewhere classified; E11.51 Type 2 diabetes mellitus with diabetic peripheral angiopathy without gangrene
CPT/HCPCS: 87070; 87075; 87077; 87186; 87205

== ENCOUNTER 2018-12-08 00:35 | Day surgery (SDC) | payer MEDICARE, OTHER ==
[2018-12-13] MEDS ORDERED: GLIM2 PO (13:34)
[2018-12-13] MEDS ORDERED: LEVO-T150 MCG PO (13:34)
[2018-12-13] MEDS ORDERED: ATOR10 PO (13:35)
[2018-12-13] MEDS ORDERED: Lisinopril2.5 MG PO (13:35)
[2018-12-13] MEDS ORDERED: SYNTHROID175 MCG PO (13:36)
== END 2018-12-08 22:45 | disposition home or self-care (01) ==
LOC: WOUND 00:35
DX: L89.893 Pressure ulcer of other site, stage 3 (principal); E11.622 Type 2 diabetes mellitus with other skin ulcer; L97.821 Non-pressure chronic ulcer of other part of left lower leg limited to breakdown of skin; I89.0 Lymphedema, not elsewhere classified; I87.2 Venous insufficiency (chronic) (peripheral); E66.01 Morbid (severe) obesity due to excess calories

== ENCOUNTER 2018-12-14 08:05 | Day surgery (SDC) | payer MEDICARE, OTHER ==
[~2018-12-14] VITALS: Ht 175.3 cm; Wt 158.5 kg
[~2018-12-14 08:05] MED LIST changes: +ATOR10 PO; +LEVO-T150 MCG PO; +SYNTHROID175 MCG PO
== END 2018-12-14 22:43 | disposition home or self-care (01) ==
LOC: MHTC 08:05
DX: I87.2 Venous insufficiency (chronic) (peripheral) (principal)
CPT/HCPCS: 36470; 36471

== ENCOUNTER 2018-12-16 00:59 | Day surgery (SDC) | payer MEDICARE, OTHER | END 2018-12-17 23:14 | disposition home or self-care (01) | LOC: WOUND 00:59 | DX: L89.893 Pressure ulcer of other site, stage 3 (principal); L97.821 Non-pressure chronic ulcer of other part of left lower leg limited to breakdown of skin; I89.0 Lymphedema, not elsewhere classified; I87.2 Venous insufficiency (chronic) (peripheral); E11.622 Type 2 diabetes mellitus with other skin ulcer; E66.01 Morbid (severe) obesity due to excess calories; Z79.84 Long term (current) use of oral hypoglycemic drugs ==

== ENCOUNTER 2018-12-21 07:41 | Day surgery (SDC) | payer MEDICARE, OTHER ==
[~2018-12-21] VITALS: Ht 175.3 cm; Wt 158.5 kg
[2018-12-21 08:54] LABS: Alanine Aminotransfer (ALT/SGP 35 U/L (12-78); Albumin, Blood 3.2 g/dL (3.4-5.0); Albumin/Globulin Ratio 0.8 (0.8-1.8); Alk Phos 131 U/L (50-136); Anion Gap 6 mmol/L (6-16); Aspartate Aminotrans (AST/SGOT 31 U/L (12-37); Bilirubin, Total 0.4 mg/dL (0.1-1.0); Blood Urea Nitrogen 12 mg/dL (8-24); Bun/Creatinine Ratio 14.9 (12.0-20.0); CHOL/HDL RATIO 2.9; CO2, Blood 32 mmol/L (21-32); Calcium, Blood 8.6 mg/dL (8.5-10.1); Chloride, Blood 106 mmol/L (98-108); Cholesterol 135 mg/dL (50-200); Creatinine, Blood 0.81 mg/dL (0.60-1.20); Globulin, Blood 3.9 g/dL (2.2-4.0); Glomerular Filtration Rate >60 (60-); Glucose, Blood 109 mg/dL (70-99); HDL Cholesterol 47 mg/dL (>39); LDL/HDL RATIO 1.3; Low Density Lipoprotein Chol 63 mg/dL (0-110); Sodium, Blood 144 mmol/L (136-145); Total Protein, Blood 7.1 g/dL (6.4-8.2); Triglycerides 124 mg/dL (30-160); Very Low Density Lipoprot Chol 25 mg/dL (6-32)
[2018-12-21 09:16] LABS: BASOPHILS ABSOLUTE AUTO 0.06 K/mm3 (0.00-0.23); BASOPHILS PERCENT AUTO 1 % (0-2); EOSINOPHILS ABSOLUTE AUTO 0.24 K/mm3 (0.00-0.68); EOSINOPHILS PERCENT AUTO 3 % (0-6); Hematocrit 44.5 % (37.0-53.0); Hemoglobin 13.1 g/dL (13.5-17.5); IMMATURE GRAN ABSOLUTE AUTO 0.03 K/mm3 (0.00-0.10); IMMATURE GRAN PERCENT AUTO 0 % (0-1); LYMPHOCYTES ABSOLUTE AUTO 2.21 K/mm3 (0.84-5.20); LYMPHOCYTES PERCENT AUTO 24 % (21-46); MONOCYTES ABSOLUTE AUTO 0.91 K/mm3 (0.16-1.47); MONOCYTES PERCENT AUTO 10 % (4-13); Mean Corpuscular HGB 28.5 pg (26.0-34.0); Mean Corpuscular HGB Conc 29.4 g/dL (31.5-36.5); Mean Corpuscular Volume 97 fL (80-100); Mean Platelet Volume 10.7 fL (9.1-12.4); NEUTROPHILS ABSOLUTE AUTO 5.72 K/mm3 (1.96-9.15); NEUTROPHILS PERCENT AUTO 62 % (41-73); Platelet Count 272 K/mm3 (150-400); RDW Coefficient Variation 13.2 % (11.7-14.2); RDW Standard Deviation 46.9 fL (35.1-46.3); White Blood Cell Count 9.17 K/mm3 (4.00-11.30)
== END 2018-12-21 22:49 | disposition home or self-care (01) ==
LOC: MHTC 07:41 → VAS 09:00 → MHTC 22:49 → VAS 01-10 10:00
DX: I87.2 Venous insufficiency (chronic) (peripheral) (principal); E78.5 Hyperlipidemia, unspecified; E11.29 Type 2 diabetes mellitus with other diabetic kidney complication; E05.90 Thyrotoxicosis, unspecified without thyrotoxic crisis or storm; Z79.84 Long term (current) use of oral hypoglycemic drugs
CPT/HCPCS: 36415; 36470; 36471; 80053; 80061; 83036; 84443; 85025; 99152; C1725; C1769; C1874; J2250; J3010; J7040

== ENCOUNTER 2019-01-04 00:31 | Day surgery (SDC) | payer MEDICARE, OTHER | END 2019-01-04 22:47 | disposition home or self-care (01) | LOC: WOUND 00:31 | DX: E11.622 Type 2 diabetes mellitus with other skin ulcer (principal); L97.822 Non-pressure chronic ulcer of other part of left lower leg with fat layer exposed; L89.893 Pressure ulcer of other site, stage 3; E11.40 Type 2 diabetes mellitus with diabetic neuropathy, unspecified; I89.0 Lymphedema, not elsewhere classified; I87.2 Venous insufficiency (chronic) (peripheral); E66.01 Morbid (severe) obesity due to excess calories; G47.30 Sleep apnea, unspecified; M10.9 Gout, unspecified; Z68.43 Body mass index [BMI] 50.0-59.9, adult ==

== ENCOUNTER 2019-01-12 00:31 | Day surgery (SDC) | payer MEDICARE, OTHER | END 2019-01-12 12:00 | disposition home or self-care (01) | LOC: WOUND 00:31 | DX: E11.622 Type 2 diabetes mellitus with other skin ulcer (principal); I83.028 Varicose veins of left lower extremity with ulcer other part of lower leg; L97.822 Non-pressure chronic ulcer of other part of left lower leg with fat layer exposed; L89.893 Pressure ulcer of other site, stage 3; E11.40 Type 2 diabetes mellitus with diabetic neuropathy, unspecified; I89.0 Lymphedema, not elsewhere classified; I87.2 Venous insufficiency (chronic) (peripheral); I50.9 Heart failure, unspecified; G47.33 Obstructive sleep apnea (adult) (pediatric); E66.01 Morbid (severe) obesity due to excess calories; Z99.89 Dependence on other enabling machines and devices ==

== ENCOUNTER 2019-01-19 00:12 | Day surgery (SDC) | payer MEDICARE, OTHER | END 2019-01-19 22:59 | disposition home or self-care (01) | LOC: WOUND 00:12 | DX: E11.622 Type 2 diabetes mellitus with other skin ulcer (principal); L97.822 Non-pressure chronic ulcer of other part of left lower leg with fat layer exposed; L89.893 Pressure ulcer of other site, stage 3; I89.0 Lymphedema, not elsewhere classified; I87.2 Venous insufficiency (chronic) (peripheral); E11.40 Type 2 diabetes mellitus with diabetic neuropathy, unspecified; G47.30 Sleep apnea, unspecified | CPT/HCPCS: G0463 ==

== ENCOUNTER 2019-01-26 01:14 | Day surgery (SDC) | payer MEDICARE, OTHER | END 2019-01-26 22:46 | disposition home or self-care (01) | LOC: WOUND 01:14 | DX: I87.2 Venous insufficiency (chronic) (peripheral) (principal); E11.622 Type 2 diabetes mellitus with other skin ulcer; L97.822 Non-pressure chronic ulcer of other part of left lower leg with fat layer exposed; L89.893 Pressure ulcer of other site, stage 3; E11.40 Type 2 diabetes mellitus with diabetic neuropathy, unspecified; I50.9 Heart failure, unspecified; I89.0 Lymphedema, not elsewhere classified; G47.33 Obstructive sleep apnea (adult) (pediatric); E66.01 Morbid (severe) obesity due to excess calories; Z99.89 Dependence on other enabling machines and devices; Z68.43 Body mass index [BMI] 50.0-59.9, adult | CPT/HCPCS: G0463 ==

== ENCOUNTER 2019-02-02 14:00 | Day surgery (SDC) | payer MEDICARE, OTHER | END 2019-02-02 23:46 | disposition home or self-care (01) | LOC: WOUND 14:00 | DX: I87.2 Venous insufficiency (chronic) (peripheral) (principal); E11.622 Type 2 diabetes mellitus with other skin ulcer; L97.822 Non-pressure chronic ulcer of other part of left lower leg with fat layer exposed; L89.893 Pressure ulcer of other site, stage 3; I89.0 Lymphedema, not elsewhere classified; I48.1 Persistent atrial fibrillation; G47.33 Obstructive sleep apnea (adult) (pediatric); E66.9 Obesity, unspecified; G47.30 Sleep apnea, unspecified; M10.9 Gout, unspecified; E11.42 Type 2 diabetes mellitus with diabetic polyneuropathy; Z99.89 Dependence on other enabling machines and devices | CPT/HCPCS: G0463 ==

== ENCOUNTER 2019-02-09 13:48 | Day surgery (SDC) | payer MEDICARE, OTHER | END 2019-02-09 22:44 | disposition home or self-care (01) | LOC: WOUND 13:48 | DX: E11.622 Type 2 diabetes mellitus with other skin ulcer (principal); L97.822 Non-pressure chronic ulcer of other part of left lower leg with fat layer exposed; L89.893 Pressure ulcer of other site, stage 3; I87.2 Venous insufficiency (chronic) (peripheral); I89.0 Lymphedema, not elsewhere classified; E11.40 Type 2 diabetes mellitus with diabetic neuropathy, unspecified; I50.9 Heart failure, unspecified; G47.33 Obstructive sleep apnea (adult) (pediatric); E66.01 Morbid (severe) obesity due to excess calories; Z99.89 Dependence on other enabling machines and devices; Z68.43 Body mass index [BMI] 50.0-59.9, adult | CPT/HCPCS: G0463 ==

== ENCOUNTER 2019-02-16 14:00 | Day surgery (SDC) | payer MEDICARE, OTHER | END 2019-02-16 23:20 | disposition home or self-care (01) | LOC: WOUND 14:00 | DX: I87.2 Venous insufficiency (chronic) (peripheral) (principal); E11.622 Type 2 diabetes mellitus with other skin ulcer; L97.821 Non-pressure chronic ulcer of other part of left lower leg limited to breakdown of skin; L89.893 Pressure ulcer of other site, stage 3; I50.9 Heart failure, unspecified; I48.1 Persistent atrial fibrillation; G47.33 Obstructive sleep apnea (adult) (pediatric); E66.9 Obesity, unspecified; I89.0 Lymphedema, not elsewhere classified; Z99.89 Dependence on other enabling machines and devices; E66.01 Morbid (severe) obesity due to excess calories; Z68.43 Body mass index [BMI] 50.0-59.9, adult | CPT/HCPCS: G0463 ==

== ENCOUNTER 2019-02-23 13:48 | Day surgery (SDC) | payer MEDICARE, OTHER | END 2019-02-23 22:45 | disposition home or self-care (01) | LOC: WOUND 13:48 | DX: E11.622 Type 2 diabetes mellitus with other skin ulcer (principal); L97.822 Non-pressure chronic ulcer of other part of left lower leg with fat layer exposed; L89.893 Pressure ulcer of other site, stage 3; M10.9 Gout, unspecified; E11.40 Type 2 diabetes mellitus with diabetic neuropathy, unspecified; G47.33 Obstructive sleep apnea (adult) (pediatric); I89.0 Lymphedema, not elsewhere classified; E66.01 Morbid (severe) obesity due to excess calories; I87.2 Venous insufficiency (chronic) (peripheral) | CPT/HCPCS: G0463 ==

== ENCOUNTER 2019-03-01 09:14 | Day surgery (SDC) | payer MEDICARE, OTHER | END 2019-03-02 22:46 | disposition home or self-care (01) | LOC: WOUND 09:14 | DX: E11.622 Type 2 diabetes mellitus with other skin ulcer (principal); L97.822 Non-pressure chronic ulcer of other part of left lower leg with fat layer exposed; E11.621 Type 2 diabetes mellitus with foot ulcer; L97.529 Non-pressure chronic ulcer of other part of left foot with unspecified severity; L89.893 Pressure ulcer of other site, stage 3; E11.40 Type 2 diabetes mellitus with diabetic neuropathy, unspecified; I89.0 Lymphedema, not elsewhere classified; I87.2 Venous insufficiency (chronic) (peripheral); G47.30 Sleep apnea, unspecified; E66.01 Morbid (severe) obesity due to excess calories | CPT/HCPCS: G0463 ==

== ENCOUNTER 2019-03-09 00:32 | Day surgery (SDC) | payer MEDICARE, OTHER | END 2019-03-09 22:43 | disposition home or self-care (01) | LOC: WOUND 00:32 | DX: L89.893 Pressure ulcer of other site, stage 3 (principal); E11.622 Type 2 diabetes mellitus with other skin ulcer; L97.821 Non-pressure chronic ulcer of other part of left lower leg limited to breakdown of skin; I89.0 Lymphedema, not elsewhere classified; I87.2 Venous insufficiency (chronic) (peripheral); E66.01 Morbid (severe) obesity due to excess calories ==

== ENCOUNTER 2019-03-23 00:19 | Day surgery (SDC) | payer MEDICARE, OTHER | END 2019-03-23 23:11 | disposition home or self-care (01) | LOC: WOUND 00:19 | DX: E11.622 Type 2 diabetes mellitus with other skin ulcer (principal); L97.822 Non-pressure chronic ulcer of other part of left lower leg with fat layer exposed; S90.425A Blister (nonthermal), left lesser toe(s), initial encounter; L89.893 Pressure ulcer of other site, stage 3; I89.0 Lymphedema, not elsewhere classified; I87.2 Venous insufficiency (chronic) (peripheral); E66.01 Morbid (severe) obesity due to excess calories; G47.30 Sleep apnea, unspecified; E11.40 Type 2 diabetes mellitus with diabetic neuropathy, unspecified | CPT/HCPCS: G0463 ==

== ENCOUNTER 2019-03-30 13:46 | Day surgery (SDC) | payer MEDICARE, OTHER ==
[~2019-03-30 13:46] MED LIST changes: -BUME1 PO
== END 2019-03-30 22:41 | disposition home or self-care (01) ==
LOC: WOUND 13:46
DX: E11.622 Type 2 diabetes mellitus with other skin ulcer (principal); L97.822 Non-pressure chronic ulcer of other part of left lower leg with fat layer exposed; L89.893 Pressure ulcer of other site, stage 3; I89.0 Lymphedema, not elsewhere classified; I87.2 Venous insufficiency (chronic) (peripheral); E11.40 Type 2 diabetes mellitus with diabetic neuropathy, unspecified; I50.9 Heart failure, unspecified; G47.33 Obstructive sleep apnea (adult) (pediatric); E66.01 Morbid (severe) obesity due to excess calories; Z99.89 Dependence on other enabling machines and devices; Z68.43 Body mass index [BMI] 50.0-59.9, adult

== ENCOUNTER 2019-04-06 14:06 | Day surgery (SDC) | payer MEDICARE, OTHER | END 2019-04-06 23:24 | disposition home or self-care (01) | LOC: WOUND 14:06 | DX: E11.622 Type 2 diabetes mellitus with other skin ulcer (principal); L97.822 Non-pressure chronic ulcer of other part of left lower leg with fat layer exposed; L89.893 Pressure ulcer of other site, stage 3; I89.0 Lymphedema, not elsewhere classified; I87.2 Venous insufficiency (chronic) (peripheral); E11.40 Type 2 diabetes mellitus with diabetic neuropathy, unspecified; M10.9 Gout, unspecified; G47.30 Sleep apnea, unspecified | CPT/HCPCS: G0463 ==

== ENCOUNTER 2019-04-20 13:52 | Day surgery (SDC) | payer MEDICARE, OTHER | END 2019-04-20 23:04 | disposition home or self-care (01) | LOC: WOUND 13:52 | DX: E11.622 Type 2 diabetes mellitus with other skin ulcer (principal); L97.822 Non-pressure chronic ulcer of other part of left lower leg with fat layer exposed; E11.40 Type 2 diabetes mellitus with diabetic neuropathy, unspecified; I87.2 Venous insufficiency (chronic) (peripheral); I89.0 Lymphedema, not elsewhere classified; I50.9 Heart failure, unspecified; I48.1 Persistent atrial fibrillation; G47.33 Obstructive sleep apnea (adult) (pediatric); E66.01 Morbid (severe) obesity due to excess calories; Z99.89 Dependence on other enabling machines and devices; Z79.84 Long term (current) use of oral hypoglycemic drugs; Z79.899 Other long term (current) drug therapy; Z68.43 Body mass index [BMI] 50.0-59.9, adult | CPT/HCPCS: G0463 ==

== ENCOUNTER 2019-05-04 14:00 | Day surgery (SDC) | payer MEDICARE, OTHER | END 2019-05-04 22:54 | disposition home or self-care (01) | LOC: WOUND 14:00 | DX: E11.622 Type 2 diabetes mellitus with other skin ulcer (principal); L97.822 Non-pressure chronic ulcer of other part of left lower leg with fat layer exposed; I89.0 Lymphedema, not elsewhere classified; I87.2 Venous insufficiency (chronic) (peripheral); E11.40 Type 2 diabetes mellitus with diabetic neuropathy, unspecified; I50.9 Heart failure, unspecified; I48.1 Persistent atrial fibrillation; G47.33 Obstructive sleep apnea (adult) (pediatric); E66.01 Morbid (severe) obesity due to excess calories; Z68.43 Body mass index [BMI] 50.0-59.9, adult; Z99.89 Dependence on other enabling machines and devices ==

== ENCOUNTER 2019-05-11 09:39 | Inpatient (IN) | payer MEDICARE, OTHER ==
[~2019-05-11] VITALS: Ht 175.3 cm; Wt 146.7 kg
[2019-05-11 10:40] LABS: BASOPHILS ABSOLUTE AUTO 0.07 K/mm3 (0.00-0.23); BASOPHILS PERCENT AUTO 0 % (0-2); EOSINOPHILS ABSOLUTE AUTO 0.04 K/mm3 (0.00-0.68); EOSINOPHILS PERCENT AUTO 0 % (0-6); Hematocrit 45.3 % (37.0-53.0); Hemoglobin 13.2 g/dL (13.5-17.5); IMMATURE GRAN ABSOLUTE AUTO 0.23 K/mm3 (0.00-0.10); IMMATURE GRAN PERCENT AUTO 1 % (0-1); LYMPHOCYTES ABSOLUTE AUTO 1.25 K/mm3 (0.84-5.20); LYMPHOCYTES PERCENT AUTO 6 % (21-46); MONOCYTES ABSOLUTE AUTO 1.68 K/mm3 (0.16-1.47); MONOCYTES PERCENT AUTO 8 % (4-13); Mean Corpuscular HGB 28.3 pg (26.0-34.0); Mean Corpuscular HGB Conc 29.1 g/dL (31.5-36.5); Mean Corpuscular Volume 97 fL (80-100); Mean Platelet Volume 10.6 fL (9.1-12.4); NEUTROPHILS ABSOLUTE AUTO 19.05 K/mm3 (1.96-9.15); NEUTROPHILS PERCENT AUTO 85 % (41-73); Platelet Count 284 K/mm3 (150-400); RDW Coefficient Variation 13.8 % (11.7-14.2); RDW Standard Deviation 49.7 fL (35.1-46.3); Red Blood Cell Count 4.67 M/mm3 (4.30-5.90); White Blood Cell Count 22.32 K/mm3 (4.00-11.30)
[2019-05-11 11:14] LABS: Alanine Aminotransfer (ALT/SGP 30 U/L (12-78); Albumin, Blood 3.1 g/dL (3.4-5.0); Albumin/Globulin Ratio 0.7 (0.8-1.8); Alk Phos 133 U/L (50-136); Anion Gap 4 mmol/L (6-16); Aspartate Aminotrans (AST/SGOT 33 U/L (12-37); Bilirubin, Total 0.8 mg/dL (0.1-1.0); Blood Urea Nitrogen 14 mg/dL (8-24); Bun/Creatinine Ratio 17.3 (12.0-20.0); CO2, Blood 34 mmol/L (21-32); Calcium, Blood 8.4 mg/dL (8.5-10.1); Chloride, Blood 100 mmol/L (98-108); Creatinine, Blood 0.81 mg/dL (0.60-1.20); Globulin, Blood 4.4 g/dL (2.2-4.0); Glomerular Filtration Rate >60 (60-); Glucose, Blood 118 mg/dL (70-99); Potassium, Blood 4.3 mmol/L (3.5-5.5); Sodium, Blood 138 mmol/L (136-145); Total Protein, Blood 7.5 g/dL (6.4-8.2); Troponin I <0.015 ng/mL (0.000-0.040)
[2019-05-11] MEDS ORDERED: Bumetanide2 MG PO (15:56)
[2019-05-11] MEDS ORDERED: POTCHL20ER PO (15:58)
[2019-05-11 22:05] LABS: Adenovirus Not Detected (NOT DETECT); Bordetella pertussis Not Detected (NOT DETECT); Chlamydophila pneumoniae Not Detected (NOT DETECT); Coronavirus 229E Not Detected (NOT DETECT); Coronavirus HKU1 Not Detected (NOT DETECT); Coronavirus NL63 Not Detected (NOT DETECT); Coronavirus OC43 Not Detected (NOT DETECT); Human Metapneumovirus Not Detected (NOT DETECT); Human Rhinovirus/Enterovirus Not Detected (NOT DETECT); Influenza A Not Detected (NOT DETECT); Influenza A/2009-H1 Not Detected (NOT DETECT); Influenza A/H1 Not Detected (NOT DETECT); Influenza A/H3 Not Detected (NOT DETECT); Influenza B Not Detected (NOT DETECT); Mycoplasma pneumoniae Not Detected (NOT DETECT); Parainfluenza Virus 1 Not Detected (NOT DETECT); Parainfluenza Virus 2 Not Detected (NOT DETECT); Parainfluenza Virus 3 Not Detected (NOT DETECT); Parainfluenza Virus 4 Not Detected (NOT DETECT); Respiratory Syncytial Virus Not Detected (NOT DETECT)
[2019-05-12 03:45] LABS: BASOPHILS ABSOLUTE AUTO 0.05 K/mm3 (0.00-0.23); BASOPHILS PERCENT AUTO 0 % (0-2); EOSINOPHILS PERCENT AUTO 0 % (0-6); Hematocrit 42.4 % (37.0-53.0); Hemoglobin 12.6 g/dL (13.5-17.5); IMMATURE GRAN ABSOLUTE AUTO 0.17 K/mm3 (0.00-0.10); IMMATURE GRAN PERCENT AUTO 1 % (0-1); LYMPHOCYTES ABSOLUTE AUTO 0.73 K/mm3 (0.84-5.20); LYMPHOCYTES PERCENT AUTO 3 % (21-46); MONOCYTES ABSOLUTE AUTO 0.78 K/mm3 (0.16-1.47); MONOCYTES PERCENT AUTO 4 % (4-13); Mean Corpuscular HGB 28.4 pg (26.0-34.0); Mean Corpuscular HGB Conc 29.7 g/dL (31.5-36.5); Mean Corpuscular Volume 96 fL (80-100); Mean Platelet Volume 10.8 fL (9.1-12.4); NEUTROPHILS ABSOLUTE AUTO 20.16 K/mm3 (1.96-9.15); NEUTROPHILS PERCENT AUTO 92 % (41-73); Platelet Count 253 K/mm3 (150-400); RDW Coefficient Variation 14.2 % (11.7-14.2); RDW Standard Deviation 49.7 fL (35.1-46.3); Red Blood Cell Count 4.44 M/mm3 (4.30-5.90); White Blood Cell Count 21.89 K/mm3 (4.00-11.30)
[2019-05-12 04:01] LABS: Anion Gap 4 mmol/L (6-16); Blood Urea Nitrogen 13 mg/dL (8-24); CO2, Blood 36 mmol/L (21-32); Calcium, Blood 8.3 mg/dL (8.5-10.1); Chloride, Blood 98 mmol/L (98-108); Glomerular Filtration Rate >60 (60-); Glucose, Blood 143 mg/dL (70-99); Sodium, Blood 138 mmol/L (136-145)
--- NOTE | 2019-05-12 08:00 | NUR ---
pt laying in bed states he is uncomfortable, not in pain, just wants to get up, after assessing pt, felt like he is too weak to stand, explained to him and that he is sick, b/p is low, and is not safe to get him oob at this time, a/ox3, cooperative with care, follows commands well, denies pain, lungs are clear dim in bases, resp even and unlabored, nonproductive cough noted, currently on 2 liters, home o2 dep at hs only, hrr, tele in place running sr with pvc's per monitor, see strip, 4+ edema noted to b/l le, dressings on both le, was changed last night per report, iv to right hand site is clear and patent, btx4, abd round soft nontender, incont of urine, attends in place, skin has wounds to b/l le, with dressings in place, masuzanne, very weak, abimael, call light in reach.
--- NOTE | 2019-05-12 08:02 | NUR ---
SHIFT SUMMARY PATIENT ADMITTED EARLIER THIS SHIFT FROM THE ER. PATIENT ATTEMPTED TO TRANSFER SELF FROM THE GURNEY TO THE BED BUT WAS UNABLE TO COMPLETE THE TRANSFER DUE TO WEAKNESS SO A SLIDER SHEET WAS USED. PATIENT SETTLED IN AND ORIENTED TO THE ROOM AND CALL LIGHT. AT THE BEDSIDE UPON ADMIT AND FOR SEVERAL HOURS BEFORE LEAVING FOR THE NIGHT. PATIENT PROVIDED WITH IV ABX PER ORDERS. WOUND CARE PROVIDED PER CHARTED WOUND CARE FROM THE WOUND CLINIC. PATIENT HAD HIS HOME CPAP WITH HIM AND USED IT THROUGHOUT THE NIGHT WITH A 2-5L O2 BLEED IN. CONTINUOUS BIOX IN PLACE. VITAL SIGNS CHARTED. PATIENT APPEARED TO SLEEP WELL THROUGHOUT THE NIGHT. REPORT GIVEN TO ONCOMING RN.
--- NOTE | 2019-05-12 10:06 | NUR ---
Patient sitting at bedside, and patient are stating that he wants to get up in a chair. myself and 2 SUPERVISOR AUDIT CLERKS's placed a gaitbelt and instructed the patient on how to get out of bed using the walker. Patient was not able to stand for more than 20 seconds, showed signs of weakness in this legs and was placed back in bed. and pateint acknowledge understanding of patient's current inablilty to walk. Patient moved to PCU 16 for the overhead lift capabilities.
--- NOTE | 2019-05-12 15:59 | NUR ---
pt sitting in a recliner since moving to new room, sleeping soundly. wakes easily, no complaints or needs. at bedside. call light in reach.
--- NOTE | 2019-05-12 18:21 | NUR ---
pt was put back in bed via lift, sleeps when left undisturbed, wakes easily, no acute changes this shift. call light in reach.
--- NOTE | 2019-05-13 06:38 | NUR ---
PATIENT VERY DROWSY AT THE BEGINING OF THE SHIFT. PATIENT ABLE TO CONVERSE BETTER THE NIGHT PROGRESSED. PATIENT REPOSITION EVERY TWO HOURS. MAJOR SHIFTS AND INCONTINENCE REQUIRING THE USE OF THE LIFT. PATIENT NOT ABLE TO HELP WITH SHIFTING. PATIENT FEELS VERY WEAK. PATIENT LOOSING CALL LIGHT FREQUENTLY AND YELLING OUT HELP OR TAKING OF HIS OXYGEN SENSOR TO GET HELP.
--- NOTE | 2019-05-13 08:00 | NUR ---
pt laying in bed awake a/ox3, pleasant and cooperative with care, follows commands well, states he had a rough night but was able to sleep until 0100, states he is feeling some better, he is def more awake and looks better than yesterday, lungs are clear dim in bases, resp even and unlabored, no cough noted or reported, is continuing on 2 liters 02 via n/c, hrirr, tele in place running afib per monitor, see strip, 4+ edema noted to b/l le, cap refill <3sec, vs stable, afebrile, iv site to right hand site is clear and patent, btx4 abd large soft nontender, incont of urine attends in place, skin has wounds to b/l le, dressings in place, has a dressing to left buttocks as well, will changes dressings today, samantha, profoundly weak, have been using lift to move him, abimael, call light in reach.
[2019-05-13 08:52] LABS: BASOPHILS ABSOLUTE AUTO 0.05 K/mm3 (0.00-0.23); BASOPHILS PERCENT AUTO 1 % (0-2); EOSINOPHILS ABSOLUTE AUTO 0.06 K/mm3 (0.00-0.68); EOSINOPHILS PERCENT AUTO 1 % (0-6); Hematocrit 41.6 % (37.0-53.0); Hemoglobin 12.1 g/dL (13.5-17.5); IMMATURE GRAN PERCENT AUTO 1 % (0-1); LYMPHOCYTES ABSOLUTE AUTO 1.35 K/mm3 (0.84-5.20); LYMPHOCYTES PERCENT AUTO 13 % (21-46); MONOCYTES ABSOLUTE AUTO 1.17 K/mm3 (0.16-1.47); MONOCYTES PERCENT AUTO 11 % (4-13); Mean Corpuscular HGB 28.5 pg (26.0-34.0); Mean Corpuscular HGB Conc 29.1 g/dL (31.5-36.5); Mean Corpuscular Volume 98 fL (80-100); Mean Platelet Volume 10.5 fL (9.1-12.4); NEUTROPHILS ABSOLUTE AUTO 7.98 K/mm3 (1.96-9.15); NEUTROPHILS PERCENT AUTO 75 % (41-73); Platelet Count 224 K/mm3 (150-400); RDW Coefficient Variation 14.2 % (11.7-14.2); RDW Standard Deviation 51.7 fL (35.1-46.3); Red Blood Cell Count 4.25 M/mm3 (4.30-5.90); White Blood Cell Count 10.71 K/mm3 (4.00-11.30)
[2019-05-13 09:08] LABS: Albumin, Blood 2.5 g/dL (3.4-5.0); Anion Gap 1 mmol/L (6-16); Blood Urea Nitrogen 16 mg/dL (8-24); Bun/Creatinine Ratio 18.2 (12.0-20.0); CO2, Blood 37 mmol/L (21-32); Calcium, Blood 8.3 mg/dL (8.5-10.1); Chloride, Blood 100 mmol/L (98-108); Creatinine, Blood 0.88 mg/dL (0.60-1.20); Glomerular Filtration Rate >60 (60-); Glucose, Blood 191 mg/dL (70-99); Phosphorus, Blood 2.4 mg/dL (2.5-4.9); Potassium, Blood 4.1 mmol/L (3.5-5.5); Sodium, Blood 138 mmol/L (136-145)
--- NOTE | 2019-05-13 14:36 | NUR ---
pt sat up in the recliner for a few hrs, he was a two person assist to tranfer him there. he was then put back to bed at his request, he had a hard time standing, with two people and a gait belt were able to pivot him over to bed. he is currently dangling his legs, just medicated with tylenol for discomfort. call light in reach.
--- NOTE | 2019-05-13 16:08 | NUR ---
dressing was changed to left lower leg, he did not want the right one done. he was given tylenol for pain, is effective for him. he is in the recliner chair, napping at this time, no complaints or needs. call light in reach.
--- NOTE | 2019-05-13 18:33 | NUR ---
pt has been up to recliner chair two times today, he is more comfortable in it than the bed. family in to visit this evening. much improved since yesterday. call light in reach.
[2019-05-14 04:35] LABS: Albumin, Blood 2.5 g/dL (3.4-5.0); Anion Gap 4 mmol/L (6-16); Blood Urea Nitrogen 23 mg/dL (8-24); Bun/Creatinine Ratio 21.5 (12.0-20.0); CO2, Blood 35 mmol/L (21-32); Calcium, Blood 8.4 mg/dL (8.5-10.1); Chloride, Blood 99 mmol/L (98-108); Creatinine, Blood 1.07 mg/dL (0.60-1.20); Glomerular Filtration Rate >60 (60-); Glucose, Blood 140 mg/dL (70-99); Phosphorus, Blood 3.6 mg/dL (2.5-4.9); Potassium, Blood 4.4 mmol/L (3.5-5.5); Sodium, Blood 138 mmol/L (136-145)
--- NOTE | 2019-05-14 06:21 | NUR ---
PATIENT ALERT AND ORIENTATED HOLDING CONVERSATIONS. PATIENT STATED HE DID NOT REMEMBER MUCH OF THE DAY BEFORE AT BEDTIME. PATIENT ABLE TO STAND FROM CHAIR WITH GAIT BELT AND FWW WITH TWO ASSIST AND TRANSFER TO THE BED. ABLE TO TAKE SEVERAL STEPS. PATIENT FEELING VERY WEAK AND TIRED. PATIENT ABLE TO MAKE SLIGHT SHIFT IN THE BED, NEEDING HELP FOR LARGE SHIFTS. PATIENT USED CPAP THROUGH THE NIGHT REQUIRING 3.5L OF OXYGEN TO BLEED IN TO MAINTAIN SATURATION. PATIENT DROPPED TO 82% ON 1L. PATIENT CURRENT ON NC AT 2L AND MAINTAINING IN MID 90'S. PATIENT STATES HE SLEPT WELL THROUGH THE NIGHT.
--- NOTE | 2019-05-14 12:58 | NUR ---
REASSESSMENT: PT HAS BEEN UP OUT OF BED AND INTO THE CHAIR THIS MORNING. HE IS ALERT AND ORIENTED, AFEBRILE. LUNGS ARE CLEAR, BUT PT IS ON 2L/NC. SBP IN THE 90-LOW 100S. PT IS EATING WELL, HAD A BM THIS AFTERNOON. PT HAS URGENCY WHEN HE VOIDS SO HE HAS ENDED UP BEING INCONTIENT SINCE HE CAN'T HOLD IT. LOWER LEGS REMAIN RED AND SWOLLEN, WORSE ON THE L SIDE. PT'S AT THE BEDSIDE CURRENTLY. ALL QUESTIONS HAVE BEEN ANSWERED. CONTINUE TO MONITOR.
--- NOTE | 2019-05-14 16:23 | NUR ---
SHIFT SUMMARY: PT HAS BEEN IN AND OUT OF BED TODAY, GETTING UP TO THE CHAIR SEVERAL TIMES. HE IS ALERT AND ORIENTED. LUNGS ARE CLEAR AND DIM THIS AFTERNOON. HE IS WEARING 2L/NC, BUT IT OFTEN COMES OUT OF HIS NOSE AND HIS SPO2 STAYS ABOVE 90% UNLESS HE EXERTS HIMSELF, AND THEN HE DESATS. AFIB, BP REMAINS SOFT WITH SBP 80-LOW 100S. PT ASYMPTOMATIC WITH LOWER BPS. EATING WELL, INCONTINENT OF URINE. HAD SEVERAL LARGE VOIDS TODAY. PT'S SPENT THE AFTERNOON WITH HIM. PLAN OF CARE DISCUSSED WITH PT THROUGHOUT THE DAY AND QUESTIONS ANSWERED. CONTINUING TO MONITOR.
--- NOTE | 2019-05-14 20:02 | NUR ---
Assumed care of pt at approx 1900. Pt with multiple family members in room, conversing with family. Pt presents sitting in bed, breathing tachypneic, denies increased SOB or chest pain. Pt maintaining o2 saturations>90% on 2L NC. Pt states to this RN that R hand IV hurts, this RN flushed IV, patent, no infiltrate. CN to attempt powerglide this shift. VSS. No apparent sign of distress. See shift assessment for detailed systems assessment. Will continue to monitor.
[2019-05-15 03:16] LABS: BASOPHILS ABSOLUTE AUTO 0.03 K/mm3 (0.00-0.23); BASOPHILS PERCENT AUTO 0 % (0-2); EOSINOPHILS ABSOLUTE AUTO 0.29 K/mm3 (0.00-0.68); EOSINOPHILS PERCENT AUTO 3 % (0-6); Hemoglobin 11.1 g/dL (13.5-17.5); IMMATURE GRAN ABSOLUTE AUTO 0.08 K/mm3 (0.00-0.10); IMMATURE GRAN PERCENT AUTO 1 % (0-1); LYMPHOCYTES ABSOLUTE AUTO 1.56 K/mm3 (0.84-5.20); LYMPHOCYTES PERCENT AUTO 19 % (21-46); MONOCYTES ABSOLUTE AUTO 1.48 K/mm3 (0.16-1.47); MONOCYTES PERCENT AUTO 18 % (4-13); Mean Corpuscular HGB 28.7 pg (26.0-34.0); Mean Corpuscular Volume 96 fL (80-100); Mean Platelet Volume 10.8 fL (9.1-12.4); NEUTROPHILS ABSOLUTE AUTO 5.01 K/mm3 (1.96-9.15); NEUTROPHILS PERCENT AUTO 59 % (41-73); Platelet Count 249 K/mm3 (150-400); RDW Coefficient Variation 14.3 % (11.7-14.2); RDW Standard Deviation 50.5 fL (35.1-46.3); Red Blood Cell Count 3.87 M/mm3 (4.30-5.90); White Blood Cell Count 8.45 K/mm3 (4.00-11.30)
[2019-05-15 03:31] LABS: Anion Gap 4 mmol/L (6-16); Blood Urea Nitrogen 20 mg/dL (8-24); Bun/Creatinine Ratio 23.6 (12.0-20.0); CO2, Blood 36 mmol/L (21-32); Calcium, Blood 8.1 mg/dL (8.5-10.1); Chloride, Blood 101 mmol/L (98-108); Creatinine, Blood 0.85 mg/dL (0.60-1.20); Glomerular Filtration Rate >60 (60-); Glucose, Blood 138 mg/dL (70-99); Potassium, Blood 4.3 mmol/L (3.5-5.5); Sodium, Blood 141 mmol/L (136-145)
--- NOTE | 2019-05-15 05:54 | NUR ---
Shift Summary No acute changes this shift. Pt sleeping with CPAP in place, 3L bleed in, maintaining sats>92%. No events on tele, VSS. Pt able to make needs known, call light in reach, bed low and locked. Powerglide placed by CN this shift, infused vanco per orders. Pt able to take pills whole with water. Pt with one incont void this shift, total saturation. Pt maintains mentation, remains alert and oriented, converses appropriately. No changes from initial shift assessment. Will continue to monitor and update as needed.
--- NOTE | 2019-05-15 07:33 | NUR ---
ASSUMED CARE: PT RESTING QUIETLY WITH BIPAP MASK ON. NO ACUTE NEEDS OR CONCERNS NOTED AT THIS TIME.
--- NOTE | 2019-05-15 11:10 | NUR ---
Patient is sitting on a chair and alert. Patient's , Izabel is bedside. Patient shares that he is doing better and may go home on Wednesday. Patient and Izabel talk about how scary the events were that began in the wound care center. I listen empathically, normalize patient experience, highlight the beauty and gift that each day is and provide a calming presence. Patient and Izabel respond well and display signs of an elevated mood.
--- NOTE | 2019-05-15 11:34 | NUR ---
PHARMACY STATES THAT BENADRYL CREAM IS UNAVAILABLE UNTIL TOMORROW. DR GALVAN NOT COMFORTABLE WITH ANY SUBSTITUTIONS. PHARMACY STATES PT'S CAN BRING BENADRYL CREAM IN FOR VERIFICATION. AWARE AND AGREES TO DO SO
--- NOTE | 2019-05-15 17:46 | NUR ---
ASSUMED CARE: PT RESTING QUIETLY IN BED EATING DINNER. FAMILY AT BEDSIDE. DRESSING CHANGED TO LEFT LEG THIS SHIFT. MEDICAL STATUS, NO TELE. NO FURTHER NEEDS OR CONCERNS AT THIS TIME
[2019-05-16 04:32] LABS: BASOPHILS ABSOLUTE AUTO 0.05 K/mm3 (0.00-0.23); BASOPHILS PERCENT AUTO 1 % (0-2); EOSINOPHILS ABSOLUTE AUTO 0.31 K/mm3 (0.00-0.68); EOSINOPHILS PERCENT AUTO 3 % (0-6); Hematocrit 40.3 % (37.0-53.0); IMMATURE GRAN ABSOLUTE AUTO 0.12 K/mm3 (0.00-0.10); IMMATURE GRAN PERCENT AUTO 1 % (0-1); LYMPHOCYTES ABSOLUTE AUTO 1.59 K/mm3 (0.84-5.20); LYMPHOCYTES PERCENT AUTO 16 % (21-46); MONOCYTES ABSOLUTE AUTO 1.55 K/mm3 (0.16-1.47); MONOCYTES PERCENT AUTO 16 % (4-13); Mean Corpuscular HGB 28.8 pg (26.0-34.0); Mean Corpuscular HGB Conc 29.8 g/dL (31.5-36.5); Mean Corpuscular Volume 97 fL (80-100); Mean Platelet Volume 10.8 fL (9.1-12.4); NEUTROPHILS ABSOLUTE AUTO 6.31 K/mm3 (1.96-9.15); NEUTROPHILS PERCENT AUTO 64 % (41-73); Platelet Count 267 K/mm3 (150-400); RDW Coefficient Variation 14.4 % (11.7-14.2); RDW Standard Deviation 51.3 fL (35.1-46.3); Red Blood Cell Count 4.17 M/mm3 (4.30-5.90); White Blood Cell Count 9.93 K/mm3 (4.00-11.30)
[2019-05-16 04:35] LABS: Anion Gap 2 mmol/L (6-16); Blood Urea Nitrogen 16 mg/dL (8-24); Bun/Creatinine Ratio 20.1 (12.0-20.0); CO2, Blood 37 mmol/L (21-32); Calcium, Blood 8.7 mg/dL (8.5-10.1); Chloride, Blood 102 mmol/L (98-108); Glomerular Filtration Rate >60 (60-); Glucose, Blood 139 mg/dL (70-99); Sodium, Blood 141 mmol/L (136-145)
--- NOTE | 2019-05-16 06:10 | NUR ---
Shift Summary No acute changes this shift. Pt remains alert and oriented, VSS, breathing easy and unlabored. Pt compliant with home CPAP with 2L bleed in maintaining sats >92%. No changes from initial shift assessment. Pt incontinent this shift, saturating attends, partial bath given, new attends in place, dry at this time. Pt without complaint of SOB, EDMONDS, CP or pressure, no acute pain noted. Pt resting, sleeping throughout shift. Pt with ABX infusing per order this shift. Pt able to take PO medications whole with water. This pt is medical status without tele per orders. Bed low and locked, call light in reach, pt able to make needs known and uses call light appropriately. Will continue to monitor and provide care until shift change.
--- NOTE | 2019-05-16 07:32 | NUR ---
pt laying in bed on cpap with eyes closed, wakes easily. vs stable, afebrile, a/ox3, pleasant and cooperative with care, follows commands well, denies pain at this time, reports sleeping well through the night, lungs are clear in [place], dim in bases, resp even and unlabored, no cough noted, hrirr, 3+edema noted to b/l le, cap refill <3sec, iv site is power glide to meera site is clear and patent, bt x4, abd large soft nontender, voids via urinal and has attends in place, skin has dressings to b/l le, otherwise c/w/d, maew, weak, is 2 person maxe assist to chair, is deconditioned, pela, call light in reach.
--- NOTE | 2019-05-16 12:35 | NUR ---
pt is medical status, and will be transferring at this time, report was given to Rishi THOMPSON, pt will be transfered via bed with systems designer and charge nurse in attendence. he and have been informed of move. they have all belongings with them.
--- NOTE | 2019-05-16 19:36 | NUR ---
SHIFT SUMMARY: PATIENT TRANSFER FROM PCU-16 THIS SHIFT. PT A&O; CALM & COOPERATIVE WITH CARE. NO C/O PAIN SINCE ARRIVAL ON MEDICAL. CELLULITIS TO LLE - RESOLVING; IV ABX CONTINUING. PT & OT ORDERED R/T PHYSICAL DECONDITIONING. REPORT GIVEN TO ONCOMING RN.
[2019-05-17 05:42] LABS: Anion Gap 4 mmol/L (6-16); Blood Urea Nitrogen 15 mg/dL (8-24); Bun/Creatinine Ratio 18.5 (12.0-20.0); CO2, Blood 36 mmol/L (21-32); Calcium, Blood 8.7 mg/dL (8.5-10.1); Chloride, Blood 101 mmol/L (98-108); Creatinine, Blood 0.81 mg/dL (0.60-1.20); Glomerular Filtration Rate >60 (60-); Glucose, Blood 164 mg/dL (70-99); Potassium, Blood 4.1 mmol/L (3.5-5.5); Sodium, Blood 141 mmol/L (136-145)
--- NOTE | 2019-05-17 18:15 | NUR ---
SHIFT SUMMARY- PT DENIES PAIN. DENIES SOB. DYSPNEA UPON EXERTION. PT SLEEPING MOST OF SHIFT. CPAP ON. DENIES N/V. 1 ASSIST WITH FWW AND GB. BP 99/57 THIS AM. BP 124/66 THIS PM. PT'S IN TO VISIT THIS AFTERNOON. NO OTHER SIGNIFICANT CHANGES THIS SHIFT.
[2019-05-18] MEDS ORDERED: SPIR25 PO (13:53)
[2019-05-18] MEDS ORDERED: Vsl#3 Capsule1 EACH PO (13:53)
[2019-05-18] MEDS ORDERED: CEPH250A PO (13:54)
--- NOTE | 2019-05-18 14:33 | NUR ---
DISCHARGE NOTE DRESSINGS CHANGED (AND PICS TAKEN) PRIOR TO DC. RECEIVED NOON ABX PRIOR TO DC. DENIED PAIN, CBGS NOT REQUIRING INSULIN. PT AND OT ASSESSED, PT GOING HOME WITH HH AND WILL F/U WITH WOUND CARE. BP MEDS AND DIURETICS GIVEN IF THEY WERE IN PARAMETERS, BP SOFT AT 106 SYSTOLIC. EDUCATION GIVEN ON IMPORTANCE OF CHF AND LOW SODIUM DIET AND TAKING MEDS PRESCRIBED AND S/S FLUID OVERLOAD. POWERGLIDE REMOVED. PT LEFT BY WC WITH TO GO HOME BY CAR. MEDS FAXED TO [id number]. PT DECLINED ME TO MAKE HIS PCP FOLLOW UP APPOINTMENT BUT GAURANTEED ME THAT HE WOULD MAKE HIS OWN.
== END 2019-05-18 14:21 | disposition home health service (06) | DRG 871 ==
LOC: ER 09:39 → PCU 17:44 → ERHOLD 17:44 → PCU 20:07 → MEDS 05-16 12:54 → ENPENDDIS 05-18 13:18 → MEDS 05-18 14:21
PROVIDERS: Emergency Medicine; Internal Medicine; ADMIT Internal Medicine
DX: A41.9 Sepsis, unspecified organism (principal); J18.9 Pneumonia, unspecified organism; J96.01 Acute respiratory failure with hypoxia; I50.32 Chronic diastolic (congestive) heart failure; L03.116 Cellulitis of left lower limb; J98.11 Atelectasis; I48.1 Persistent atrial fibrillation; G47.33 Obstructive sleep apnea (adult) (pediatric); I11.0 Hypertensive heart disease with heart failure; E66.01 Morbid (severe) obesity due to excess calories; R91.1 Solitary pulmonary nodule; E03.9 Hypothyroidism, unspecified; I27.20 Pulmonary hypertension, unspecified; M10.9 Gout, unspecified; K21.9 Gastro-esophageal reflux disease without esophagitis; N40.0 Benign prostatic hyperplasia without lower urinary tract symptoms; R65.20 Severe sepsis without septic shock; E11.9 Type 2 diabetes mellitus without complications; Z87.891 Personal history of nicotine dependence; Z79.01 Long term (current) use of anticoagulants; Z79.84 Long term (current) use of oral hypoglycemic drugs; Z79.899 Other long term (current) drug therapy
CPT/HCPCS: 0099U; 36415; 71046; 71260; 80048; 80053; 80069; 80202; 82947; 83605; 83880; 84145; 84484; 85025; 87040; 93005; 93010; 94640; 94762; 96365-59; 96367-59; 96375-59; 96376-59; 97110; 97116; 97162; 97166; 97530; 99285-25; A9270; C1751; J0456; J0690; J0696; J3370; J7050; J7060; Q9967

== ENCOUNTER 2019-05-11 15:18 | Day surgery (SDC) | payer MEDICARE, OTHER ==
[2019-05-11] MEDS ORDERED: Bumetanide2 MG PO (15:56)
[2019-05-11] MEDS ORDERED: POTCHL20ER PO (15:58)
== END 2019-05-11 22:52 | disposition home or self-care (01) ==
LOC: WOUND 15:18
DX: E11.622 Type 2 diabetes mellitus with other skin ulcer (principal); L97.821 Non-pressure chronic ulcer of other part of left lower leg limited to breakdown of skin; I89.0 Lymphedema, not elsewhere classified; I87.2 Venous insufficiency (chronic) (peripheral); I50.9 Heart failure, unspecified; I48.1 Persistent atrial fibrillation; G47.33 Obstructive sleep apnea (adult) (pediatric); E66.01 Morbid (severe) obesity due to excess calories; Z99.89 Dependence on other enabling machines and devices
CPT/HCPCS: 94760; G0463

== ENCOUNTER 2019-05-22 12:27 | Day surgery (SDC) | payer MEDICARE, OTHER ==
[~2019-05-22 12:27] MED LIST changes: +Bumetanide2 MG PO; +CEPH250A PO; +POTCHL20ER PO; +SPIR25 PO; +Vsl#3 Capsule1 EACH PO
== END 2019-05-22 23:01 | disposition home or self-care (01) ==
LOC: WOUND 12:27
DX: E11.622 Type 2 diabetes mellitus with other skin ulcer (principal); L97.821 Non-pressure chronic ulcer of other part of left lower leg limited to breakdown of skin; I89.0 Lymphedema, not elsewhere classified; I87.2 Venous insufficiency (chronic) (peripheral); I11.0 Hypertensive heart disease with heart failure; I50.9 Heart failure, unspecified; I48.1 Persistent atrial fibrillation; G47.33 Obstructive sleep apnea (adult) (pediatric); E66.01 Morbid (severe) obesity due to excess calories; Z99.89 Dependence on other enabling machines and devices
CPT/HCPCS: 94760; G0463

== ENCOUNTER 2019-06-02 13:53 | Day surgery (SDC) | payer MEDICARE, OTHER | END 2019-06-02 23:13 | disposition home or self-care (01) | LOC: WOUND 13:53 | DX: E11.622 Type 2 diabetes mellitus with other skin ulcer (principal); L97.821 Non-pressure chronic ulcer of other part of left lower leg limited to breakdown of skin; I89.0 Lymphedema, not elsewhere classified; I87.2 Venous insufficiency (chronic) (peripheral); I11.0 Hypertensive heart disease with heart failure; I50.9 Heart failure, unspecified; G47.33 Obstructive sleep apnea (adult) (pediatric); E66.01 Morbid (severe) obesity due to excess calories; I48.1 Persistent atrial fibrillation; Z99.89 Dependence on other enabling machines and devices ==

== ENCOUNTER 2019-06-08 14:05 | Day surgery (SDC) | payer MEDICARE, OTHER | END 2019-06-08 23:19 | disposition home or self-care (01) | LOC: WOUND 14:05 | DX: E11.622 Type 2 diabetes mellitus with other skin ulcer (principal); L97.821 Non-pressure chronic ulcer of other part of left lower leg limited to breakdown of skin; I89.0 Lymphedema, not elsewhere classified; I87.2 Venous insufficiency (chronic) (peripheral); I11.0 Hypertensive heart disease with heart failure; I50.9 Heart failure, unspecified; G47.33 Obstructive sleep apnea (adult) (pediatric); E66.01 Morbid (severe) obesity due to excess calories; Z99.89 Dependence on other enabling machines and devices | CPT/HCPCS: G0463 ==

== ENCOUNTER 2019-06-14 13:33 | Day surgery (SDC) | payer MEDICARE, OTHER ==
[~2019-06-14] VITALS: Ht 175.3 cm; Wt 145.0 kg
== END 2019-06-14 22:57 | disposition home or self-care (01) ==
LOC: MHTC 13:33
DX: I83.92 Asymptomatic varicose veins of left lower extremity (principal); I87.2 Venous insufficiency (chronic) (peripheral); I89.0 Lymphedema, not elsewhere classified
CPT/HCPCS: 36466; 36471; 99152; 99153; J2250; J3010; J7040

== ENCOUNTER 2019-06-30 02:33 | Day surgery (SDC) | payer MEDICARE, OTHER | END 2019-06-30 22:43 | disposition home or self-care (01) | LOC: WOUND 02:33 | DX: E11.622 Type 2 diabetes mellitus with other skin ulcer (principal); L97.822 Non-pressure chronic ulcer of other part of left lower leg with fat layer exposed; I87.2 Venous insufficiency (chronic) (peripheral); I89.0 Lymphedema, not elsewhere classified; I11.0 Hypertensive heart disease with heart failure; I50.9 Heart failure, unspecified; G47.33 Obstructive sleep apnea (adult) (pediatric); E66.01 Morbid (severe) obesity due to excess calories; Z68.42 Body mass index [BMI] 45.0-49.9, adult; Z99.89 Dependence on other enabling machines and devices | CPT/HCPCS: G0463 ==

== ENCOUNTER 2019-07-13 11:36 | Emergency (ER) | payer MEDICARE, OTHER ==
[~2019-07-13] VITALS: Ht 175.3 cm; Wt 144.7 kg
[2019-07-13 13:08] LABS: BASOPHILS ABSOLUTE AUTO 0.07 K/mm3 (0.00-0.23); BASOPHILS PERCENT AUTO 1 % (0-2); EOSINOPHILS ABSOLUTE AUTO 0.17 K/mm3 (0.00-0.68); EOSINOPHILS PERCENT AUTO 1 % (0-6); Hematocrit 45.3 % (37.0-53.0); IMMATURE GRAN ABSOLUTE AUTO 0.07 K/mm3 (0.00-0.10); IMMATURE GRAN PERCENT AUTO 1 % (0-1); LYMPHOCYTES ABSOLUTE AUTO 2.85 K/mm3 (0.84-5.20); LYMPHOCYTES PERCENT AUTO 23 % (21-46); MONOCYTES ABSOLUTE AUTO 1.77 K/mm3 (0.16-1.47); MONOCYTES PERCENT AUTO 14 % (4-13); Mean Corpuscular HGB 28.5 pg (26.0-34.0); Mean Corpuscular HGB Conc 30.9 g/dL (31.5-36.5); Mean Corpuscular Volume 92 fL (80-100); Mean Platelet Volume 10.8 fL (9.1-12.4); NEUTROPHILS ABSOLUTE AUTO 7.55 K/mm3 (1.96-9.15); NEUTROPHILS PERCENT AUTO 60 % (41-73); Platelet Count 236 K/mm3 (150-400); RDW Coefficient Variation 13.5 % (11.7-14.2); RDW Standard Deviation 45.8 fL (35.1-46.3); Red Blood Cell Count 4.91 M/mm3 (4.30-5.90); White Blood Cell Count 12.48 K/mm3 (4.00-11.30)
[2019-07-13 13:48] LABS: Alanine Aminotransfer (ALT/SGP 24 U/L (12-78); Albumin, Blood 3.2 g/dL (3.4-5.0); Albumin/Globulin Ratio 0.7 (0.8-1.8); Alk Phos 138 U/L (50-136); Anion Gap 3 mmol/L (6-16); Aspartate Aminotrans (AST/SGOT 20 U/L (12-37); Bilirubin, Total 0.5 mg/dL (0.1-1.0); Blood Urea Nitrogen 18 mg/dL (8-24); Bun/Creatinine Ratio 18.4 (12.0-20.0); CO2, Blood 34 mmol/L (21-32); Calcium, Blood 8.7 mg/dL (8.5-10.1); Chloride, Blood 101 mmol/L (98-108); Creatinine, Blood 0.98 mg/dL (0.60-1.20); Globulin, Blood 4.7 g/dL (2.2-4.0); Glomerular Filtration Rate >60 (60-); Glucose, Blood 96 mg/dL (70-99); Potassium, Blood 4.5 mmol/L (3.5-5.5); Sodium, Blood 138 mmol/L (136-145); Total Protein, Blood 7.9 g/dL (6.4-8.2); Troponin I <0.015 ng/mL (0.000-0.040)
== END 2019-07-13 14:12 | disposition home or self-care (01) ==
LOC: ER 11:36
PROVIDERS: Emergency Medicine
DX: R07.89 Other chest pain (principal); I48.91 Unspecified atrial fibrillation; E03.9 Hypothyroidism, unspecified; Z87.891 Personal history of nicotine dependence; Z79.899 Other long term (current) drug therapy; Z79.84 Long term (current) use of oral hypoglycemic drugs; Z79.01 Long term (current) use of anticoagulants
CPT/HCPCS: 36415; 71046; 80053; 84484; 85025; 93005; 93010; 99285-25

== ENCOUNTER 2019-07-14 00:56 | Day surgery (SDC) | payer MEDICARE, OTHER | END 2019-07-14 23:26 | disposition home or self-care (01) | LOC: WOUND 00:56 | DX: E11.622 Type 2 diabetes mellitus with other skin ulcer (principal); L97.821 Non-pressure chronic ulcer of other part of left lower leg limited to breakdown of skin; I89.0 Lymphedema, not elsewhere classified; I87.2 Venous insufficiency (chronic) (peripheral); I11.0 Hypertensive heart disease with heart failure; I50.9 Heart failure, unspecified; G47.33 Obstructive sleep apnea (adult) (pediatric); E66.01 Morbid (severe) obesity due to excess calories; Z68.42 Body mass index [BMI] 45.0-49.9, adult; Z99.89 Dependence on other enabling machines and devices ==

== ENCOUNTER 2019-07-25 00:31 | Day surgery (SDC) | payer MEDICARE, OTHER | END 2019-07-25 22:50 | disposition home or self-care (01) | LOC: WOUND 00:31 | DX: E11.622 Type 2 diabetes mellitus with other skin ulcer (principal); L97.822 Non-pressure chronic ulcer of other part of left lower leg with fat layer exposed; I87.2 Venous insufficiency (chronic) (peripheral); I11.0 Hypertensive heart disease with heart failure; I50.9 Heart failure, unspecified; G47.33 Obstructive sleep apnea (adult) (pediatric); E66.01 Morbid (severe) obesity due to excess calories; I89.0 Lymphedema, not elsewhere classified; Z68.42 Body mass index [BMI] 45.0-49.9, adult | CPT/HCPCS: G0463 ==

== ENCOUNTER 2019-08-04 00:13 | Day surgery (SDC) | payer MEDICARE, OTHER | END 2019-08-04 23:48 | disposition home or self-care (01) | LOC: WOUND 00:13 | DX: E11.622 Type 2 diabetes mellitus with other skin ulcer (principal); L97.822 Non-pressure chronic ulcer of other part of left lower leg with fat layer exposed; I89.0 Lymphedema, not elsewhere classified; I87.2 Venous insufficiency (chronic) (peripheral); I11.0 Hypertensive heart disease with heart failure; I50.9 Heart failure, unspecified; E66.01 Morbid (severe) obesity due to excess calories; Z99.89 Dependence on other enabling machines and devices; Z68.42 Body mass index [BMI] 45.0-49.9, adult | CPT/HCPCS: G0463 ==

== ENCOUNTER 2019-08-11 13:53 | Day surgery (SDC) | payer MEDICARE, OTHER | END 2019-08-11 23:47 | disposition home or self-care (01) | LOC: WOUND 13:53 | DX: E11.622 Type 2 diabetes mellitus with other skin ulcer (principal); L97.821 Non-pressure chronic ulcer of other part of left lower leg limited to breakdown of skin; I87.2 Venous insufficiency (chronic) (peripheral); I89.0 Lymphedema, not elsewhere classified; I11.0 Hypertensive heart disease with heart failure; I50.9 Heart failure, unspecified; I48.19 Other persistent atrial fibrillation; G47.33 Obstructive sleep apnea (adult) (pediatric); Z68.42 Body mass index [BMI] 45.0-49.9, adult; E66.01 Morbid (severe) obesity due to excess calories; Z79.899 Other long term (current) drug therapy; Z99.89 Dependence on other enabling machines and devices; Z79.84 Long term (current) use of oral hypoglycemic drugs; Z79.01 Long term (current) use of anticoagulants | CPT/HCPCS: Q4196 ==

== ENCOUNTER 2019-08-17 08:05 | Day surgery (SDC) | payer MEDICARE, OTHER | END 2019-08-17 23:56 | disposition home or self-care (01) | LOC: WOUND 08:05 | DX: E11.622 Type 2 diabetes mellitus with other skin ulcer (principal); L97.822 Non-pressure chronic ulcer of other part of left lower leg with fat layer exposed; I89.0 Lymphedema, not elsewhere classified; I87.2 Venous insufficiency (chronic) (peripheral); I11.0 Hypertensive heart disease with heart failure; I50.9 Heart failure, unspecified; G47.33 Obstructive sleep apnea (adult) (pediatric); E66.01 Morbid (severe) obesity due to excess calories; Z99.89 Dependence on other enabling machines and devices; Z68.42 Body mass index [BMI] 45.0-49.9, adult ==

== ENCOUNTER 2019-09-01 00:22 | Day surgery (SDC) | payer MEDICARE, OTHER | END 2019-09-01 23:10 | disposition home or self-care (01) | LOC: WOUND 00:22 | DX: E11.622 Type 2 diabetes mellitus with other skin ulcer (principal); L97.822 Non-pressure chronic ulcer of other part of left lower leg with fat layer exposed; E11.52 Type 2 diabetes mellitus with diabetic peripheral angiopathy with gangrene; I96 Gangrene, not elsewhere classified; I89.0 Lymphedema, not elsewhere classified; I11.0 Hypertensive heart disease with heart failure; I50.9 Heart failure, unspecified; I48.19 Other persistent atrial fibrillation; G47.33 Obstructive sleep apnea (adult) (pediatric); I87.2 Venous insufficiency (chronic) (peripheral); E66.01 Morbid (severe) obesity due to excess calories; Z68.42 Body mass index [BMI] 45.0-49.9, adult; Z79.84 Long term (current) use of oral hypoglycemic drugs; Z79.899 Other long term (current) drug therapy; Z99.89 Dependence on other enabling machines and devices | CPT/HCPCS: G0463 ==

== ENCOUNTER 2019-09-15 13:55 | Day surgery (SDC) | payer MEDICARE, OTHER | END 2019-09-15 22:50 | disposition home or self-care (01) | LOC: WOUND 13:55 | DX: E11.622 Type 2 diabetes mellitus with other skin ulcer (principal); L97.821 Non-pressure chronic ulcer of other part of left lower leg limited to breakdown of skin; I87.2 Venous insufficiency (chronic) (peripheral); I89.0 Lymphedema, not elsewhere classified; Z79.84 Long term (current) use of oral hypoglycemic drugs; Z79.899 Other long term (current) drug therapy | CPT/HCPCS: 87071; 87075; 87102; 87205 ==

== ENCOUNTER 2019-09-29 13:46 | Day surgery (SDC) | payer MEDICARE, OTHER | END 2019-09-29 23:04 | disposition home or self-care (01) | LOC: WOUND 13:46 | DX: E11.622 Type 2 diabetes mellitus with other skin ulcer (principal); L97.821 Non-pressure chronic ulcer of other part of left lower leg limited to breakdown of skin; I87.2 Venous insufficiency (chronic) (peripheral); I11.0 Hypertensive heart disease with heart failure; I50.9 Heart failure, unspecified; E66.01 Morbid (severe) obesity due to excess calories; G47.33 Obstructive sleep apnea (adult) (pediatric); I48.19 Other persistent atrial fibrillation; I89.0 Lymphedema, not elsewhere classified; Z99.89 Dependence on other enabling machines and devices; Z68.42 Body mass index [BMI] 45.0-49.9, adult; Z79.01 Long term (current) use of anticoagulants; Z79.899 Other long term (current) drug therapy; Z79.84 Long term (current) use of oral hypoglycemic drugs ==

== ENCOUNTER 2019-10-20 13:55 | Day surgery (SDC) | payer MEDICARE, OTHER | END 2019-10-20 22:53 | disposition home or self-care (01) | LOC: WOUND 13:55 | DX: E11.622 Type 2 diabetes mellitus with other skin ulcer (principal); L97.821 Non-pressure chronic ulcer of other part of left lower leg limited to breakdown of skin; I87.2 Venous insufficiency (chronic) (peripheral); E66.01 Morbid (severe) obesity due to excess calories; I11.0 Hypertensive heart disease with heart failure; I50.9 Heart failure, unspecified; G47.33 Obstructive sleep apnea (adult) (pediatric); Z99.89 Dependence on other enabling machines and devices; Z68.42 Body mass index [BMI] 45.0-49.9, adult; Z79.899 Other long term (current) drug therapy; Z79.84 Long term (current) use of oral hypoglycemic drugs; E11.59 Type 2 diabetes mellitus with other circulatory complications; R06.00 Dyspnea, unspecified | CPT/HCPCS: 36415; 80053; 83036; 85025 ==

== ENCOUNTER 2019-11-10 01:00 | Day surgery (SDC) | payer OTHER | END 2019-11-10 23:06 | disposition home or self-care (01) | LOC: WOUND 01:00 | DX: E11.622 Type 2 diabetes mellitus with other skin ulcer (principal); L97.821 Non-pressure chronic ulcer of other part of left lower leg limited to breakdown of skin; I87.2 Venous insufficiency (chronic) (peripheral); I11.0 Hypertensive heart disease with heart failure; I50.9 Heart failure, unspecified; G47.33 Obstructive sleep apnea (adult) (pediatric); E66.01 Morbid (severe) obesity due to excess calories; I89.0 Lymphedema, not elsewhere classified; Z99.89 Dependence on other enabling machines and devices; Z68.42 Body mass index [BMI] 45.0-49.9, adult; Z79.899 Other long term (current) drug therapy; Z79.84 Long term (current) use of oral hypoglycemic drugs ==

== ENCOUNTER 2019-12-27 03:12 | Day surgery (SDC) | payer OTHER | END 2019-12-27 22:50 | disposition home or self-care (01) | LOC: WOUND 03:12 | DX: E11.622 Type 2 diabetes mellitus with other skin ulcer (principal); L97.821 Non-pressure chronic ulcer of other part of left lower leg limited to breakdown of skin; I11.0 Hypertensive heart disease with heart failure; I50.9 Heart failure, unspecified; I87.2 Venous insufficiency (chronic) (peripheral); E66.01 Morbid (severe) obesity due to excess calories; G47.33 Obstructive sleep apnea (adult) (pediatric); Z99.89 Dependence on other enabling machines and devices; Z68.42 Body mass index [BMI] 45.0-49.9, adult; Z79.84 Long term (current) use of oral hypoglycemic drugs; Z79.01 Long term (current) use of anticoagulants; Z79.899 Other long term (current) drug therapy | CPT/HCPCS: G0463 ==

== ENCOUNTER 2020-01-03 07:56 | Day surgery (SDC) | payer OTHER ==
[~2020-01-03] VITALS: Ht 175.3 cm; Wt 150.0 kg
[~2020-01-03 07:56] MED LIST changes: +ACET500 PO
--- NOTE | 2020-01-03 08:53 | NUR ---
Pt's bilat groin prepped and cleansed with baby shampoo rinsed with water. Shaved and cleansed for procedure. Pt with reddness and tender with no skin breakdown noted at groin sites.
--- NOTE | 2020-01-03 12:45 | NUR ---
Sbar from Autumn Valadez RN Iv with 900 NS shaye. Pt alert stating he has lower back pain. VO received from Dr. Elaine for pain management. Pt sat's 90% ra has 02 @ night. o2 applied at 3 liters per NC. Pt in A-fib vss. Right groin with minx device soft non-tender. Left groin with no bleeding no hematoma tender with antegrade access. Pt head reposition, Pt medicated with RX with good relief. DP pulses noted bilat feet. Pt reposition in bed. Pt with CHF closely monitoring fluid intake. brought back to room.
--- NOTE | 2020-01-03 13:00 | NUR ---
sbar to Kira Faulkner RN for lunch break. Pt stable, sites unchanged pt sleeping.
--- NOTE | 2020-01-03 14:30 | NUR ---
Pt left lower leg dressing change with Alginate dressing over wound with Kurlex dressing then a cotton stretch sock with attends over the wound due to the weeping of the wound. Bilat sites wnl, Pt stable after standing with help. Pt ate lunch with drink. Pt denies pain at this time. Discharge instructions given to patient and . Verbalized understanding. Pt stable for discharge.
--- NOTE | 2020-01-03 14:40 | NUR ---
Pt discharged via wheelchair stable
== END 2020-01-03 22:40 | disposition home or self-care (01) ==
LOC: MHTC 07:56
DX: I70.249 Atherosclerosis of native arteries of left leg with ulceration of unspecified site (principal); L97.929 Non-pressure chronic ulcer of unspecified part of left lower leg with unspecified severity
CPT/HCPCS: 36200; 36245; 75625; 75710; 75716; 75774; 76937; 82947; 85347; 99152; 99153; C1760; C1769; C1887; C1894; J1644; J2250; J3010; J7030; Q9967

== ENCOUNTER 2020-01-09 00:20 | Day surgery (SDC) | payer OTHER | END 2020-01-09 22:49 | disposition home or self-care (01) | LOC: WOUND 00:20 | DX: E11.622 Type 2 diabetes mellitus with other skin ulcer (principal); L97.822 Non-pressure chronic ulcer of other part of left lower leg with fat layer exposed; I11.0 Hypertensive heart disease with heart failure; I50.9 Heart failure, unspecified; I87.2 Venous insufficiency (chronic) (peripheral); G47.33 Obstructive sleep apnea (adult) (pediatric); Z99.89 Dependence on other enabling machines and devices; E66.01 Morbid (severe) obesity due to excess calories ==

== ENCOUNTER 2020-03-01 00:19 | Day surgery (SDC) | payer MEDICARE | END 2020-03-01 22:54 | disposition home or self-care (01) | LOC: WOUND 00:19 | DX: E11.622 Type 2 diabetes mellitus with other skin ulcer (principal); L97.821 Non-pressure chronic ulcer of other part of left lower leg limited to breakdown of skin; I89.0 Lymphedema, not elsewhere classified; I87.2 Venous insufficiency (chronic) (peripheral); I11.0 Hypertensive heart disease with heart failure; I50.9 Heart failure, unspecified; E66.01 Morbid (severe) obesity due to excess calories; G47.33 Obstructive sleep apnea (adult) (pediatric); Z68.42 Body mass index [BMI] 45.0-49.9, adult; Z79.84 Long term (current) use of oral hypoglycemic drugs; Z79.899 Other long term (current) drug therapy; Z79.01 Long term (current) use of anticoagulants ==

== ENCOUNTER 2020-03-29 00:41 | Day surgery (SDC) | payer MEDICARE | END 2020-03-29 23:19 | disposition home or self-care (01) | LOC: WOUND 00:41 | DX: E11.622 Type 2 diabetes mellitus with other skin ulcer (principal); L97.821 Non-pressure chronic ulcer of other part of left lower leg limited to breakdown of skin; I89.0 Lymphedema, not elsewhere classified; I87.2 Venous insufficiency (chronic) (peripheral); G47.33 Obstructive sleep apnea (adult) (pediatric); E66.01 Morbid (severe) obesity due to excess calories; I11.0 Hypertensive heart disease with heart failure; I50.9 Heart failure, unspecified; I48.19 Other persistent atrial fibrillation | CPT/HCPCS: G0463 ==

== ENCOUNTER 2020-05-21 15:16 | Observation (INO) | payer MEDICARE, OTHER ==
[~2020-05-21] VITALS: Ht 175.3 cm; Wt 150.5 kg
[2020-05-21 15:56] LABS: BASOPHILS ABSOLUTE AUTO 0.06 K/mm3 (0.00-0.23); BASOPHILS PERCENT AUTO 0 % (0-2); EOSINOPHILS ABSOLUTE AUTO 0.03 K/mm3 (0.00-0.68); EOSINOPHILS PERCENT AUTO 0 % (0-6); Hematocrit 44.6 % (37.0-53.0); IMMATURE GRAN PERCENT AUTO 1 % (0-1); LYMPHOCYTES ABSOLUTE AUTO 1.05 K/mm3 (0.84-5.20); LYMPHOCYTES PERCENT AUTO 4 % (21-46); MONOCYTES ABSOLUTE AUTO 1.03 K/mm3 (0.16-1.47); MONOCYTES PERCENT AUTO 4 % (4-13); Mean Corpuscular HGB Conc 29.1 g/dL (31.5-36.5); Mean Corpuscular Volume 96 fL (80-100); Mean Platelet Volume 10.6 fL (9.1-12.4); NEUTROPHILS ABSOLUTE AUTO 21.73 K/mm3 (1.96-9.15); NEUTROPHILS PERCENT AUTO 90 % (41-73); Platelet Count 250 K/mm3 (150-400); RDW Coefficient Variation 14.2 % (11.7-14.2); RDW Standard Deviation 50.4 fL (35.1-46.3); Red Blood Cell Count 4.64 M/mm3 (4.30-5.90)
[2020-05-21 16:26] LABS: Alanine Aminotransfer (ALT/SGP 21 U/L (12-78); Albumin, Blood 2.9 g/dL (3.4-5.0); Albumin/Globulin Ratio 0.7 (0.8-1.8); Alk Phos 152 U/L (50-136); Anion Gap 8 mmol/L (6-16); Aspartate Aminotrans (AST/SGOT 21 U/L (12-37); Bilirubin, Total 0.8 mg/dL (0.1-1.0); Blood Urea Nitrogen 16 mg/dL (8-24); Bun/Creatinine Ratio 18.4 (12.0-20.0); CO2, Blood 30 mmol/L (21-32); Calcium, Blood 8.9 mg/dL (8.5-10.1); Chloride, Blood 103 mmol/L (98-108); Creatinine, Blood 0.87 mg/dL (0.60-1.20); Free Thyroxine 1.28 ng/dL (0.70-1.60); Globulin, Blood 4.3 g/dL (2.2-4.0); Glomerular Filtration Rate >60 (60-); Glucose, Blood 166 mg/dL (70-99); Magnesium, Blood 1.8 mg/dL (1.6-2.4); Potassium, Blood 4.8 mmol/L (3.5-5.5); Sodium, Blood 141 mmol/L (136-145); Total Protein, Blood 7.2 g/dL (6.4-8.2)
[2020-05-21] MEDS ORDERED: GLUCOPHAGE1000 M1 PO (16:57)
[2020-05-21] MEDS ORDERED: PIOGLITAZONE HC15 MG PO (16:57)
[2020-05-21] MEDS ORDERED: NEURONTIN300 MG PO (16:58)
[2020-05-21] MEDS ORDERED: Glimepiride2 MG PO (16:58)
[2020-05-21] MEDS ORDERED: Potassium Chlo20 ME1 PO (16:59)
[2020-05-21] MEDS ORDERED: ATOR10 PO (16:59)
[2020-05-21 17:00] LABS: Source, Urine Catheter
[2020-05-21 17:03] LABS: Bilirubin, Urine Neg (Neg); Blood, Urine 2+ (Neg); Glucose Qualitative, Urine Neg (Neg); Ketones, Urine 1+ (Neg); Leukocyte Esterase, Urine Neg (Neg); Nitrite, Urine Neg (Neg); Protein, Urine 1+ (Neg); Urobilinogen, Urine NORM (Normal); pH, Urine 6.5 (5.0-8.0)
[2020-05-21 17:12] LABS: Appearance, Urine Clear (Clear); Color, Urine Yellow (P-Yellow)
[2020-05-21 17:14] LABS: Squamous Epithelial Cells Few /hpf (Few)
[2020-05-21 17:15] LABS: Bacteria Few /hpf
--- NOTE | 2020-05-22 04:18 | NUR ---
SHIFT SUMMARY PT WEAK AND TIRED BUT OVERALL HAD UNEVENTFUL NIGHT. SKIN TO BLE'S RED AND BUMPY WITH 4+ PITTING EDEMA. OPEN SORES TO LLE. PICTURES TAKEN AND WOUNDS DRESSED. LLE WEEPING. PT HAS HX OF LYMPHEDEMA. SMALL ULCER TO LEFT BUTTOCKS. PT REPOSITIONED Q 2 HOURS. LACTIC ACID 2.5 THIS EVENING. 2 L FLUID BOLUS ORDERED AND ADMINISTERED. REDRAW AFTER WAS 1.3. RAPID COVID SENT AND RESULTS WERE NEGATIVE. GE CATH PATENT AND DRAINING YELLOW URINE. HOME CPAP BROUGHT IN BY ASHLEE. PT WORE THROUGHOUT THE NIGHT WITH HIS BASELINE 2 L BLEEDIN. PT HAS SOME SOB WITH EXERTION, HOWEVER LUNGS SOUNDED CLEAR. VITAL SIGNS STABLE. PT RESTING COMFORTABLY AT THIS TIME. WILL CONTINUE TO MONITOR AND REPORT TO DAY RN.
[2020-05-22 05:01] LABS: PCO2 Venous 71.8 mmHg (38-42); PO2 Venous 37.2 mmHg (38-42)
[2020-05-22 05:16] LABS: BASOPHILS ABSOLUTE AUTO 0.05 K/mm3 (0.00-0.23); BASOPHILS PERCENT AUTO 0 % (0-2); EOSINOPHILS ABSOLUTE AUTO 0.12 K/mm3 (0.00-0.68); EOSINOPHILS PERCENT AUTO 1 % (0-6); Hematocrit 39.6 % (37.0-53.0); Hemoglobin 11.6 g/dL (13.5-17.5); IMMATURE GRAN ABSOLUTE AUTO 0.09 K/mm3 (0.00-0.10); IMMATURE GRAN PERCENT AUTO 1 % (0-1); LYMPHOCYTES PERCENT AUTO 7 % (21-46); MONOCYTES ABSOLUTE AUTO 1.18 K/mm3 (0.16-1.47); MONOCYTES PERCENT AUTO 7 % (4-13); Mean Corpuscular HGB 28.4 pg (26.0-34.0); Mean Corpuscular HGB Conc 29.3 g/dL (31.5-36.5); Mean Corpuscular Volume 97 fL (80-100); Mean Platelet Volume 11.6 fL (9.1-12.4); NEUTROPHILS ABSOLUTE AUTO 13.71 K/mm3 (1.96-9.15); NEUTROPHILS PERCENT AUTO 84 % (41-73); Platelet Count 214 K/mm3 (150-400); RDW Coefficient Variation 14.6 % (11.7-14.2); RDW Standard Deviation 52.3 fL (35.1-46.3); Red Blood Cell Count 4.08 M/mm3 (4.30-5.90); White Blood Cell Count 16.35 K/mm3 (4.00-11.30)
[2020-05-22 06:56] LABS: Anion Gap 3 mmol/L (6-16); Blood Urea Nitrogen 14 mg/dL (8-24); Bun/Creatinine Ratio 17.1 (12.0-20.0); CO2, Blood 34 mmol/L (21-32); Calcium, Blood 8.5 mg/dL (8.5-10.1); Chloride, Blood 105 mmol/L (98-108); Creatinine, Blood 0.82 mg/dL (0.60-1.20); Glomerular Filtration Rate >60 (60-); Glucose, Blood 157 mg/dL (70-99); Potassium, Blood 4.2 mmol/L (3.5-5.5); Sodium, Blood 142 mmol/L (136-145)
--- NOTE | 2020-05-22 17:08 | NUR ---
met with pt sleeping on cpap. is his primary caregiver she does his bathing and some of his skin care and all his ADL's. She was out for the day getting some respite and he used his alarm call. Review of his needs with . He has been having increased lymphadema to his legs amd more serious darinage. sleeping more and she states more vomiting with food intake. He is having more constipation. She states he was discharged from wound clinic. She feels he still needs their care. She is having difficulty with getting him to appointments. She has expressed some significant caregiver stress. She states [facility] has been very good at his would care and in suuporting her. Review of conversation with hospitalist doctor Lopez. [facility] and suggest increased care and suggest hospice consult. [facility] They will consult hospice to see pt and get her more support and assess need. pt high risk for readmission. kps score is 40%
--- NOTE | 2020-05-22 17:12 | NUR ---
SHIFT SUMMARY- PT IS A/O, PLESANT AND COOPERATIVE. HE SLEPT FOR MUCH OF THIS SHIFT. HIS CAME TO VISIT THIS MORNING AND SPOKE WITH DR. GARCIA. PT IS USING HOME CPAP. CHANGED DRESSING ON LEG TODAY. GAVE BEDBATH. REMOVED GE CATH. HE IS EATING AND DRINKING WELL. HE IS INCONTINENT AND ATTENDS ARE IN PLACE
--- NOTE | 2020-05-22 18:01 | NUR ---
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 We used to know eachother well. He did not recognize me today and appeared quite sleepy. Maybe a bit confused? He could not say why he is hospitalized, but says he is going home soon. He was pleasant, but had trouble engaging. No family present. Provided encouragement and offered prayer. I will remain available to pt and family.
--- NOTE | 2020-05-23 02:26 | NUR ---
Assumed care for patient at 0100. Patient resting comfortably. No complaints of pain or discomfort. Tolerating IVF and antibiotics without difficulty. Patient asking for soda. Reminded him of NPO status for surgery in morning with Dr Palma. Will continue to Monitor
--- NOTE | 2020-05-23 02:37 | NUR ---
Assumed care of patient at 0100. Patient awake and asked for sleeping med. He was very anxious and slightly confused. He stated he couldn't breathe with the CPAP and also at the same time, He stated He stops breathing "76 times an hour" due to his Sleep Apnea. Explained how CPAP works to keep his 02 levels up when he stops breathing, and he agreed to wear it if he could have a sleep med. 12.5mg Atarax given per EMAR, and placed mask on Patient. No complaints of discomfort at time of assessment. No changes from evening assessment.
--- NOTE | 2020-05-23 02:53 | NUR ---
Assumed care at 0100. Patient appears comfortable and is sleeping soundly with CPAP in place. Will continue close monitoring.
[2020-05-23 04:29] LABS: Bicarbonate Venous 33.2 mmol/L (24.0-30.0); PCO2 Venous 50.7 mmHg (38-42); PO2 Venous 118 mmHg (38-42); pH Blood Venous 7.45 (7.34-7.37)
[2020-05-23 05:16] LABS: BASOPHILS ABSOLUTE AUTO 0.04 K/mm3 (0.00-0.23); BASOPHILS PERCENT AUTO 0 % (0-2); EOSINOPHILS ABSOLUTE AUTO 0.28 K/mm3 (0.00-0.68); EOSINOPHILS PERCENT AUTO 3 % (0-6); Hematocrit 42.3 % (37.0-53.0); IMMATURE GRAN ABSOLUTE AUTO 0.09 K/mm3 (0.00-0.10); IMMATURE GRAN PERCENT AUTO 1 % (0-1); LYMPHOCYTES ABSOLUTE AUTO 1.34 K/mm3 (0.84-5.20); LYMPHOCYTES PERCENT AUTO 13 % (21-46); MONOCYTES ABSOLUTE AUTO 1.25 K/mm3 (0.16-1.47); MONOCYTES PERCENT AUTO 12 % (4-13); Mean Corpuscular HGB 27.5 pg (26.0-34.0); Mean Corpuscular HGB Conc 28.4 g/dL (31.5-36.5); Mean Corpuscular Volume 97 fL (80-100); NEUTROPHILS ABSOLUTE AUTO 7.48 K/mm3 (1.96-9.15); NEUTROPHILS PERCENT AUTO 71 % (41-73); Platelet Count 235 K/mm3 (150-400); RDW Coefficient Variation 14.4 % (11.7-14.2); Red Blood Cell Count 4.36 M/mm3 (4.30-5.90); White Blood Cell Count 10.48 K/mm3 (4.00-11.30)
[2020-05-23 05:50] LABS: Anion Gap 3 mmol/L (6-16); Blood Urea Nitrogen 14 mg/dL (8-24); Bun/Creatinine Ratio 16.6 (12.0-20.0); CO2, Blood 36 mmol/L (21-32); Calcium, Blood 8.3 mg/dL (8.5-10.1); Chloride, Blood 102 mmol/L (98-108); Creatinine, Blood 0.84 mg/dL (0.60-1.20); Glomerular Filtration Rate >60 (60-); Glucose, Blood 125 mg/dL (70-99); Potassium, Blood 3.9 mmol/L (3.5-5.5); Sodium, Blood 141 mmol/L (136-145)
[2020-05-23] MEDS ORDERED: PROBIOTIC250 MG PO (11:42)
[2020-05-23] MEDS ORDERED: DOXY100 PO (11:43)
--- NOTE | 2020-05-23 12:19 | NUR ---
DISCHARGE HOME WITH HOME HEALTH PATIENT HAS BEEN DISCHARGED HOME. PER CASE MANAGEMENT, [facility] HAS BEEN NOTIFIED. IV REMOVED INTACT. DC TEACHING AND INFORMATION REVIEWED WITH PATIENT AND HIS . BOTH VERBALIZED UNDERSTANDING AND ARE AGREEABLE TO DISCHARGE. HE WAS ESCORTED OUT TO HIS CAR BY THIS RN. PATIENT STABLE AT TIME OF DICSHARGE. HE WAS ABLE TO AMBULATE WITH MINIMUM ASSISTANCE AND A WALKER TO THE WHEEL CHAIR AND SELF TRANSFER INTO HIS CAR.
--- NOTE | 2020-05-23 14:50 | NUR ---
Routine spiritual care note: Provided supportive visit to spouse, Izabel. She admits to feeling overwhelmed with Neno's care, but she also expressed hope that he will get stronger with home health services. She is hoping he will be able to walk again. I provided emotional affirmation and gentle prenatal genetic counselor to good effect. Neno was in process of being d/c when I visited.
== END 2020-05-23 12:08 | disposition home or self-care (01) ==
LOC: ER 15:16 → MEDS 17:36 → ENPENDDIS 05-23 11:17 → MEDS 05-23 12:08
PROVIDERS: Emergency Medicine; ADMIT Internal Medicine
DX: D72.829 Elevated white blood cell count, unspecified (principal); L89.329 Pressure ulcer of left buttock, unspecified stage; L89.319 Pressure ulcer of right buttock, unspecified stage; L97.829 Non-pressure chronic ulcer of other part of left lower leg with unspecified severity; A41.9 Sepsis, unspecified organism; J18.9 Pneumonia, unspecified organism; I48.20 Chronic atrial fibrillation, unspecified; I11.0 Hypertensive heart disease with heart failure; I50.32 Chronic diastolic (congestive) heart failure; J96.12 Chronic respiratory failure with hypercapnia; J96.11 Chronic respiratory failure with hypoxia; E66.01 Morbid (severe) obesity due to excess calories; Z85.118 Personal history of other malignant neoplasm of bronchus and lung; G47.33 Obstructive sleep apnea (adult) (pediatric); Z79.899 Other long term (current) drug therapy; Z79.01 Long term (current) use of anticoagulants; Z79.84 Long term (current) use of oral hypoglycemic drugs; E03.9 Hypothyroidism, unspecified; Z87.891 Personal history of nicotine dependence; Z11.59 Encounter for screening for other viral diseases
CPT/HCPCS: 36415; 51702; 71045; 80048; 80053; 81001; 82803; 82947; 83605; 83735; 83880; 84145; 84439; 84443; 85025; 87040; 93005; 93010; 94762; 96365; 96366; 96367; 99285-25; A9270; A9270-GY; G0378; J0456; J0696; J7030; J7050; U0002

== ENCOUNTER 2021-03-24 20:02 | Emergency (ER) | payer MEDICARE ==
[~2021-03-24] VITALS: Ht 175.3 cm; Wt 129.3 kg
[~2021-03-24 20:02] MED LIST changes: +DOXY100 PO; +GLUCOPHAGE1000 M1 PO; +Glimepiride2 MG PO; +NEURONTIN300 MG PO; +PANT40 PO; +PIOGLITAZONE HC15 MG PO; +PROBIOTIC250 MG PO; +Potassium Chlo20 ME1 PO
[2021-03-24 21:01] LABS: BASOPHILS ABSOLUTE AUTO 0.06 K/mm3 (0.00-0.23); BASOPHILS PERCENT AUTO 1 % (0-2); EOSINOPHILS PERCENT AUTO 3 % (0-6); Hematocrit 43.9 % (37.0-53.0); Hemoglobin 13.8 g/dL (13.5-17.5); IMMATURE GRAN ABSOLUTE AUTO 0.04 K/mm3 (0.00-0.10); IMMATURE GRAN PERCENT AUTO 0 % (0-1); LYMPHOCYTES ABSOLUTE AUTO 2.27 K/mm3 (0.84-5.20); LYMPHOCYTES PERCENT AUTO 21 % (21-46); MONOCYTES ABSOLUTE AUTO 1.35 K/mm3 (0.16-1.47); MONOCYTES PERCENT AUTO 13 % (4-13); Mean Corpuscular HGB 29.6 pg (26.0-34.0); Mean Corpuscular HGB Conc 31.4 g/dL (31.5-36.5); Mean Corpuscular Volume 94 fL (80-100); Mean Platelet Volume 10.2 fL (9.1-12.4); NEUTROPHILS ABSOLUTE AUTO 6.73 K/mm3 (1.96-9.15); NEUTROPHILS PERCENT AUTO 63 % (41-73); Platelet Count 291 K/mm3 (150-400); RDW Coefficient Variation 13.2 % (11.7-14.2); RDW Standard Deviation 45.9 fL (35.1-46.3); Red Blood Cell Count 4.66 M/mm3 (4.30-5.90); White Blood Cell Count 10.75 K/mm3 (4.00-11.30)
[2021-03-24 21:26] LABS: Alanine Aminotransfer (ALT/SGP 27 U/L (12-78); Albumin, Blood 3.2 g/dL (3.4-5.0); Albumin/Globulin Ratio 0.8 (0.8-1.8); Alk Phos 141 U/L (50-136); Anion Gap 2 mmol/L (6-16); Aspartate Aminotrans (AST/SGOT 23 U/L (12-37); Bilirubin, Total 0.5 mg/dL (0.1-1.0); Blood Urea Nitrogen 12 mg/dL (8-24); Bun/Creatinine Ratio 14.2 (12.0-20.0); CO2, Blood 30 mmol/L (21-32); Calcium, Blood 9.2 mg/dL (8.5-10.1); Chloride, Blood 106 mmol/L (98-108); Creatinine, Blood 0.85 mg/dL (0.60-1.20); Globulin, Blood 4.2 g/dL (2.2-4.0); Glomerular Filtration Rate >60 (60-); Glucose, Blood 141 mg/dL (70-99); Potassium, Blood 4.1 mmol/L (3.5-5.5); Sodium, Blood 138 mmol/L (136-145); Total Protein, Blood 7.4 g/dL (6.4-8.2)
[2021-03-24] MEDS ORDERED: Dexamethasone4 MG PO (22:17)
== END 2021-03-25 00:15 | disposition home or self-care (01) ==
LOC: ER 20:02
PROVIDERS: Emergency Medicine
DX: G93.9 Disorder of brain, unspecified (principal); C34.90 Malignant neoplasm of unspecified part of unspecified bronchus or lung; R53.1 Weakness; I11.0 Hypertensive heart disease with heart failure; I50.32 Chronic diastolic (congestive) heart failure; E11.9 Type 2 diabetes mellitus without complications; K21.9 Gastro-esophageal reflux disease without esophagitis; Z79.01 Long term (current) use of anticoagulants; Z87.891 Personal history of nicotine dependence
CPT/HCPCS: 80053; 85025; 99283; A9270; J1100